=== PATIENT | female | born 1940 | race Caucasian/White ===

== ENCOUNTER 2017-05-12 14:22 | Inpatient (IN) | payer MEDICARE ==
[~2017-05-12] VITALS: Ht 162.6 cm; Wt 103.9 kg
[2017-05-12] MEDS ORDERED: SODIUM CHLOR 0.9% 1000 ML INJ 1,000 ML IV ONE (15:15)
[2017-05-12] MEDS ORDERED: SODIUM CHLORIDE 0.9% FLUSH 10 ML FLUSH IV FLUSH PRN ×2 (15:15→18:30)
[2017-05-12 15:21] VITALS: BP 127/67; PULSE 76; RESP 18; O2SAT 100
[2017-05-12 15:24] VITALS: BP 127/67; PULSE 74; PULSE 79; RESP 18; TEMP 98.4; O2SAT 100
[2017-05-12 15:29] LABS: BLOOD GAS BASE EXCESS 4.6 mmol/L (-2-2); BLOOD GAS CARBOXYHEMOGLOBIN 2.6 % (0-4); BLOOD GAS HCO3 29 mmol/L (22-26); BLOOD GAS METHEMOGLOBIN 0.2 % (0-2); BLOOD GAS O2 HGB SATURATION 97 % (90-100); BLOOD GAS OXYGEN CONTENT 12.2 Vol % (12.0-20.0); BLOOD GAS PCO2 50 mmHg (38-42); BLOOD GAS PO2 127 mmHG (61-120); BLOOD GAS TOTAL HGB 8.8 G/DL (12.0-16.0); CRITICAL VALUE NO; DRAW SITE RT BRACHIAL; LITER FLOW 3 L/M; NUMBER OF ARTERIAL PUNCTURES 2; OXYGEN DEVICE NASAL CANNULA; STAT YES; TEMP CORR TO 98.6; ULNAR PULSE PRESENT
[2017-05-12] MEDS ORDERED: SIMV40TA PO (16:33)
[2017-05-12] MEDS ORDERED: FURO1TAB62 PO (16:33)
[2017-05-12] MEDS ORDERED: FOLI400T PO (16:33)
[2017-05-12] MEDS ORDERED: SPIRCAP INH (16:33)
[2017-05-12] MEDS ORDERED: TYLE325T PO (16:33)
[2017-05-12] MEDS ORDERED: ALBUAER3 INH (16:33)
[2017-05-12] MEDS ORDERED: CHOL5000 PO (16:33)
[2017-05-12] MEDS ORDERED: ATEN25TA PO (16:33)
[2017-05-12] MEDS ORDERED: LATA0.002 EACH EYE (16:33)
[2017-05-12 16:35] LABS: ANION GAP 6 MEQ/L (5-15); AST (GOT) 63 U/L (15-37); BICARBONATE 30.7 MEQ/L (21.0-32.0); BLOOD UREA NITROGEN 22 MG/DL (7-18); CHLORIDE 104 MEQ/L (98-107); GLOMERULAR FILTRATION RATE 87 ML/MIN (>89); POTASSIUM 3.3 MEQ/L (3.5-5.1); SODIUM (NA) 141 MEQ/L (136-145)
[2017-05-12 16:36] LABS: ALT (GPT) 43 U/L (10-53)
[2017-05-12 16:39] LABS: BASOPHIL % 0.1 % (0.0-2.0); EOSINOPHIL # 0.1 TH/MM3 (0-0.4); EOSINOPHIL % 0.9 % (0.0-4.0); LYMPH % 4.3 % (9.0-44.0); LYMPHOCYTE # 0.3 TH/MM3 (1.0-4.8); MEAN CELL VOLUME 100.2 FL (80.0-100.0); MEAN CORPUSCULAR HEMOGLOBIN 33.4 PG (27.0-34.0); MEAN CORPUSCULAR HGB CONC 33.3 % (32.0-36.0); MONO % 2.9 % (0.0-8.0); NEUT % 91.8 % (16.0-70.0); PLATELET COUNT 48 TH/MM3 (150-450); RED BLOOD COUNT 2.59 MIL/MM3 (4.00-5.30); RED CELL DISTRIBUTION WIDTH 19.4 % (11.6-17.2); WHITE BLOOD COUNT 6.6 TH/MM3 (4.0-11.0)
[2017-05-12 16:43] LABS: HEMO FLAGS AUTO DIFF
[2017-05-12 16:46] LABS: ALKALINE PHOSPHATASE 89 U/L (45-117); CREATINE KINASE 161 U/L (26-192); TOTAL BILIRUBIN ADULT 0.6 MG/DL (0.2-1.0)
--- NOTE | 2017-05-12 17:01 | RADRPT ---
EXAM DATE/TIME: 05/12/2017 16:29 [place] COMPARISON: No previous studies available for comparison. INDICATIONS : Shortness of breath. MEDICAL HISTORY : None. SURGICAL HISTORY : None. ENCOUNTER: Initial ACUITY: 1 day PAIN SCORE: Non-responsive. LOCATION: Bilateral chest FINDINGS: Cardiomegaly with mild interstitial edema and consolidative changes left base. The support on the ri ght. There is no pleural effusion or pneumothorax The portion of the bony skeleton visualized is unremarkable. CONCLUSION: Cardiomegaly with mild failure and consolidative changes left base. I have no prior films for comparison. Peter Couch MD FACR on May 12, 2017 at 16:58 Board Certified Radiologist. This report was verified electronically.
[2017-05-12 17:08] LABS: BACTERIA, URINE OCC /hpf; BLOOD, URINE MOD (NEG); GLUCOSE,URINE NEG (NEG); HYALINE CAST, URINE 6 /lpf (RARE); KETONE, URINE NEG (NEG); NITRITE,URINE NEG (NEG); SQUAMOUS EPITHELIAL CELL URINE <1 /hpf (0-5); URINE COLOR LIGHT-YELLOW (YELLW/STRAW)
[2017-05-12 17:13] LABS: BANDS 2 % (0-6); NEUTROPHIL # MANUAL DIFF 6.2 TH/MM3 (1.8-7.7); PLATELET ESTIMATE SMEAR LOW (NORMAL); PLATELET MORPHOLOGY NORMAL (NORMAL); POLYS (SEG NEUTROPHILS) 92 % (16-70); SCAN/DIFF FINAL DIFF MANUAL; WBC DIFF SAMPLE 100
[2017-05-12 17:20] LABS: COMMENT (UR) CATH-CULTURE IND; CULTURE IF INDICATED CATH CULTURE IND
--- NOTE | 2017-05-12 17:36 | PD ---
HPI Chief Complaint: Altered Mental Status Time Seen by Provider: 14:57 Travel History International Travel<30 days: No Contact w/Intl Traveler<30days: No Traveled to known affect area: No History of Present Illness HPI The patient is 77 years old and arrives to the ER with altered mental status. Patient reportedly experienced a syncope episode from her [facility], she was evidently found comatose after the seizure. Concern for respiratory distress and shortness of breath reported. Patient was therefore sent here for evaluation. History is limited upon the patient's arrival due to altered mental status. The patient has a history of encephalopathy evidently multifactorial with aphagia. 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 [facility] Social History Alcohol Use: No Tobacco Use: No Substance Use: No Allergies-Medications (Allergen,Severity, Reaction): Coded Allergies: codeine (Verified Allergy, Intermediate, 05/12/17) cephalexin (Verified Allergy, Unknown, 05/12/17) Reported Meds & Prescriptions Reported Meds & Active Scripts Active Reported Tylenol (Acetaminophen) 325 Mg Tab 650 Mg PO Q6H PRN Vitamin D3 (Cholecalciferol) 5,000 Unit Cap 5,000 Units PO DAILY Proair Hfa 8.5 GM Inh (Albuterol Sulfate) 90 Mcg/Act Aer 1 Puff INH Q4H PRN 108 mcg/actuation Spiriva Handihaler (Tiotropium Inh) 18 Mcg Cap 18 Mcg INH DAILY 1 capsule = 18 mcg Latanoprost Opth Drops (Latanoprost) 0.005% Drops 1 Drop EACH EYE HS Refrigerate until opened. Folic Acid 0.4 Mg Tab 1 Mg PO DAILY Simvastatin 40 Mg Tab 40 Mg PO HS Lasix (Furosemide) 20 Mg Tab 20 Mg PO DAILY Atenolol 25 Mg Tab 25 Mg PO DAILY Review of Systems ROS Limitations: Clinical Condition Physical Exam Narrative GENERAL: 77-year-old female BMI is 39.5, patient does not answer questions SKIN: Warm and dry. HEAD: Atraumatic. Normocephalic. EYES: Pupils equal and round. No scleral icterus. No injection or drainage. ENT: No nasal bleeding or discharge. Mucous membranes pink and moist. NECK: Trachea midline. No JVD. CARDIOVASCULAR: Tachycardia to a rate of 100 approximately. RESPIRATORY: No accessory muscle use. Clear to auscultation. Breath sounds equal bilaterally. GASTROINTESTINAL: Abdomen soft, non-tender, nondistended. Hepatic and splenic margins not palpable. MUSCULOSKELETAL: Extremities without clubbing, cyanosis, or edema. No obvious deformities. NEUROLOGICAL: Unable to assess PSYCHIATRIC: Appropriate mood and affect; insight and judgment normal. Data Data Last Documented VS Vital Signs Date Time Temp Pulse Resp B/P (MAP) Pulse Ox O2 Delivery O2 Flow Rate FiO2 05/12/17 15:24 98.4 74 18 127/67 (87) 100 Nasal Cannula 3.00 Orders Orders Ammonia (05/12/17 15:06) Complete Blood Count With Diff (05/12/17 15:06) Comprehensive Metabolic Panel (05/12/17 15:06) Creatine Kinase (Cpk) (05/12/17 15:06) Troponin I (05/12/17 15:06) Thyroid Stimulating Hormone (05/12/17 15:06) Urinalysis - C+S If Indicated (05/12/17 15:06) Arterial Blood Gas (Abg) (05/12/17 15:06) Chest, Single Ap (05/12/17 15:06) Blood Glucose (05/12/17 15:06) Ecg Monitoring (05/12/17 15:06) Iv Access Insert/Monitor (05/12/17 15:06) Oximetry (05/12/17 15:06) Sodium Chloride 0.9% Flush (Ns Flush) (05/12/17 15:15) Drug Screen, Random Urine (05/12/17 15:06) Alcohol (Ethanol) (05/12/17 15:06) Tylenol (Acetaminophen) (05/12/17 15:06) Salicylates (Aspirin) (05/12/17 15:06) Sodium Chlor 0.9% 1000 Ml Inj (Ns 1000 M (05/12/17 15:15) Electrocardiogram (05/12/17 ) Urine Culture (05/12/17 16:23) Aztreonam Inj (Azactam Inj) (05/12/17 17:45) Vancomycin Inj (Vancomycin Inj) (05/12/17 17:45) Metronidazole 500 Mg Inj (Flagyl 500 Mg (05/12/17 17:45) Admit Order (Ed Use Only) (05/12/17 ) Auto Camp Attendant / Telemetry JORDAN.Q8H (05/12/17 17:40) Vital Signs (Adult) Q4H (05/12/17 17:40) Diet Heart Healthy (05/12/17 Dinner) Activity Bed Rest (05/12/17 17:40) Labs Laboratory Tests Test 05/12/17 15:20 05/12/17 15:52 05/12/17 16:23 Blood Gas Puncture Site RT BRACHIAL Blood Gas Patient Temperature 98.6 Blood Gas HCO3 29 mmol/L Blood Gas Base Excess 4.6 mmol/L Blood Gas Oxygen Saturation 97 % Arterial Blood pH 7.39 Arterial Blood Partial Pressure CO2 50 mmHg Arterial Blood Partial Pressure O2 127 mmHG Arterial Blood Oxygen Content 12.2 Vol % Arterial Blood Carboxyhemoglobin 2.6 % Arterial Blood Methemoglobin 0.2 % Blood Gas Hemoglobin 8.8 G/DL Oxygen Delivery Device NASAL CANNULA Blood Gas Liter Flow 3 L/M White Blood Count 6.6 TH/MM3 Red Blood Count 2.59 MIL/MM3 Hemoglobin 8.6 GM/DL Hematocrit 26.0 % Mean Corpuscular Volume 100.2 FL Mean Corpuscular Hemoglobin 33.4 PG Mean Corpuscular Hemoglobin Concent 33.3 % Red Cell Distribution Width 19.4 % Platelet Count 48 TH/MM3 Mean Platelet Volume 10.2 FL Neutrophils (%) (Auto) 91.8 % Lymphocytes (%) (Auto) 4.3 % Monocytes (%) (Auto) 2.9 % Eosinophils (%) (Auto) 0.9 % Basophils (%) (Auto) 0.1 % Neutrophils # (Auto) 6.0 TH/MM3 Lymphocytes # (Auto) 0.3 TH/MM3 Monocytes # (Auto) 0.2 TH/MM3 Eosinophils # (Auto) 0.1 TH/MM3 Basophils # (Auto) 0.0 TH/MM3 CBC Comment AUTO DIFF Differential Total Cells Counted 100 Neutrophils % (Manual) 92 % Band Neutrophils % 2 % Lymphocytes % 4 % Monocytes % 2 % Neutrophils # (Manual) 6.2 TH/MM3 Differential Comment FINAL DIFF MANUAL Platelet Estimate LOW Platelet Morphology Comment NORMAL Blood Urea Nitrogen 22 MG/DL Creatinine 0.66 MG/DL Random Glucose 91 MG/DL Total Protein 5.6 GM/DL Albumin 2.2 GM/DL Calcium Level 8.6 MG/DL Alkaline Phosphatase 89 U/L Aspartate Amino Transf (AST/SGOT) 63 U/L Alanine Aminotransferase (ALT/SGPT) 43 U/L Total Bilirubin 0.6 MG/DL Sodium Level 141 MEQ/L Potassium Level 3.3 MEQ/L Chloride Level 104 MEQ/L Carbon Dioxide Level 30.7 MEQ/L Anion Gap 6 MEQ/L Estimat Glomerular Filtration Rate 87 ML/MIN Ammonia 11 MCMOL/L Total Creatine Kinase 161 U/L Troponin I 0.31 NG/ML Thyroid Stimulating Hormone 3rd Gen 2.210 uIU/ML Urine Color LIGHT-YELLOW Urine Turbidity HAZY Urine pH 5.0 Urine Specific [place] 1.010 Urine Protein TRACE mg/dL Urine Glucose (UA) NEG mg/dL Urine Ketones NEG mg/dL Urine Occult Blood MOD Urine Nitrite NEG Urine Bilirubin NEG Urine Urobilinogen LESS THAN 2.0 MG/DL Urine Leukocyte Esterase MOD Urine RBC LESS THAN 1 /hpf Urine WBC 1 /hpf Urine Squamous Epithelial Cells <1 /hpf Urine Bacteria OCC /hpf Urine Hyaline Casts 6 /lpf Microscopic Urinalysis Comment CATH-CULTURE IND MDM Medical Decision Making Medical Screen Exam Complete: Yes Emergency Medical Condition: Yes Medical Record Reviewed: Yes Differential Diagnosis Seizure, syncope, electron imbalance, UTI, pneumonia Narrative Course CBC & BMP Diagram 05/12/17 15:52 Total Protein 5.6 L, Albumin 2.2 L, Calcium Level 8.6, Alkaline Phosphatase 89, Aspartate Amino Transf (AST/SGOT) 63 H, Alanine Aminotransferase (ALT/SGPT) 43, Total Bilirubin 0.6 Band neutrophils 2 Last 24 hours Impressions Chest X-Ray 05/12/17 1506 Signed Impressions: Service Date/Time: Friday, May 12, 2017 16:29 - CONCLUSION: Cardiomegaly with mild failure and consolidative changes left base. I have no prior films for comparison. Peter Couch MD FACR Troponin 0.31 TSH 2.2 Ammonia 11 Urinalysis shows moderate leukocyte esterase occasional bacteria 7.39/50/29 base excess 4.6 Patient will be admitted for IV antibiotics and IV fluids. Case discussed with Dr. Lomeli for FMR. Diagnosis Primary Impression: PNA (pneumonia) Additional Impressions: Syncope Elevated troponin Admitting Information Admitting Physician Requests: Admit Jerzy Salmeron MD May 12, 2017 17:36
[2017-05-12] MEDS ORDERED: metroNIDAZOLE 500 MG INJ 100 ML IV ONE (17:45)
[2017-05-12] MEDS ORDERED: VANCOMYCIN INJ 1,000 MG in SODIUM CHLOR 0.9% 250 ML INJ 250 ML IV ONE (17:45)
--- NOTE | 2017-05-12 17:47 | HHI.HP ---
HPI Service Family Medicine Primary Care Physician Unknown Admission Diagnosis PNA; AMS; Syncope; Elevated Tn Diagnoses: Chief Complaint: altered mental status International Travel<30 Days: No Contact w/Intl Traveler<30days: No History of Present Illness Patient is a 77-year-old female with history of COPD, stage IV lung cancer, recent hospitalization who presents with altered mental status. Patient is able to answer questions and respond to commands, however is nonverbal. Most of the history is derived from the patient's daughter, who is present. Just released from [facility] yesterday, where she was admitted for sepsis and pneumonia. Of note, she has a history of COPD and stage IV lung cancer. She has been on chemotherapy in the past, which is shopped at [facility]. She was on maintenance chemotherapy, but has been off that for 6- 8 weeks. Daughter is unsure of the prognosis. Her oncologist is Dr. Adams. Daughter states that before hospitalization about a month ago, she lived on her own, shopped, drove, was independent. They noted the hospitalization, she was transferred to [facility]. As of yesterday, she was sitting up, alert, feeding herself. Her daughter visited her today, and found her having difficulty breathing and altered mental status. She was diagnosed with metabolic encephalopathy at her last hospitalization. Per daughter, she was back to about 75% of her normal. She is unsure what happened at the facility , she is not on oxygen at home. Discussed case with [facility]. They stated that as of yesterday, she was alert and oriented 2, totally dependent in her ADLs. Was eating/drinking without issues. Was on 2 L of oxygen. Review of Systems ROS Limitations: Altered Mental Status Constitutional: DENIES: Fever, Chills Respiratory: COMPLAINS OF: Shortness of breath, DENIES: Cough Cardiovascular: DENIES: Chest pain Gastrointestinal: DENIES: Constipation, Diarrhea, Nausea, Vomiting Past Family Social History Past Medical History Stage IV lung [id number] cell COPD metabolic encephalopathy glaucoma knee OA Past Surgical History bilateral knee replacement Lap band surgery hysterectomy Reported Medications Reported Meds & Active Scripts Active Reported Tylenol (Acetaminophen) 325 Mg Tab 650 Mg PO Q6H PRN Vitamin D3 (Cholecalciferol) 5,000 Unit Cap 5,000 Units PO DAILY Proair Hfa 8.5 GM Inh (Albuterol Sulfate) 90 Mcg/Act Aer 1 Puff INH Q4H PRN 108 mcg/actuation Spiriva Handihaler (Tiotropium Inh) 18 Mcg Cap 18 Mcg INH DAILY 1 capsule = 18 mcg Latanoprost Opth Drops (Latanoprost) 0.005% Drops 1 Drop EACH EYE HS Refrigerate until opened. Folic Acid 0.4 Mg Tab 1 Mg PO DAILY Simvastatin 40 Mg Tab 40 Mg PO HS Lasix (Furosemide) 20 Mg Tab 20 Mg PO DAILY Atenolol 25 Mg Tab 25 Mg PO DAILY Allergies: Coded Allergies: codeine (Verified Allergy, Intermediate, 05/12/17) cephalexin (Verified Allergy, Unknown, 05/12/17) Active Ordered Medications Active Medications Aztreonam 2000 mg/ Sodium Chloride 100 ml @ 200 mls/hr ONCE ONCE IV; Start at 17:45; Stop 05/12/17 at 18:14 Metronidazole 100 ml @ 100 mls/hr ONCE ONCE IV; Start 05/12/17 at 17:45; Stop 05/12/17 at 18:44 Sodium Chloride 1,000 ml @ 999 mls/hr BOLUS ONCE IV Last administered on 05/12t 16:10; Admin Dose 999 MLS/HR; Start 05/12/17 at 15:15; Stop 05/12/17 at 16:15; Status DC Sodium Chloride (NS Flush) 2 ml UNSCH PRN IV FLUSH; Start 05/12/17 at 15:15 Vancomycin HCl 1000 mg/Sodium Chloride 250 ml @ 250 mls/hr ONCE ONCE IV; Start 05/12/17 at 17:45; Stop 05/12/17 at 18:44 Family History Mother-heart disease, 78y Father-heart disease, 63y Social History Stay at home mom quit smoking 20 years ago (2PPD) No alcohol use denies illicit drug use Physical Exam Vital Signs Vital Signs Date Time Temp Pulse Resp B/P (MAP) Pulse Ox O2 Delivery O2 Flow Rate FiO2 05/12/17 15:24 98.4 74 18 127/67 (87) 100 Nasal Cannula 3.00 05/12/17 15:24 98.4 79 18 127/67 (87) 100 Room Air 05/12/17 15:24 76 18 100 Room Air 05/12/17 15:21 76 18 127/67 (87) 100 Physical Exam GENERAL: This is a well-nourished, well-developed patient, in no apparent distress. Lying in bed. SKIN: No rashes, ecchymoses or lesions. Cool and dry. HEAD: Atraumatic. Normocephalic. No temporal or scalp tenderness. EYES: Pupils equal round and reactive. Extraocular motions intact. No scleral icterus. No injection or drainage. ENT: Throat without erythema, tonsillar hypertrophy or exudate. Uvula midline. Airway patent. NECK: Trachea midline. No JVD or lymphadenopathy. Supple, nontender, no meningeal signs. CARDIOVASCULAR: Regular rate and rhythm without murmurs, gallops, or rubs. RESPIRATORY: Distant and course breath sounds, diminished in bases GASTROINTESTINAL: Abdomen soft, non-tender, nondistended. No hepato-splenomegaly , or palpable masses. No guarding. MUSCULOSKELETAL: Extremities without clubbing, cyanosis. Mild pitting edema bilaterally NEUROLOGICAL: Awake and alert. Unable to assess orientation. section 8 property manager 2-12 grossly intact. 3-4/5 strength bilaterally upper extremities. Lower extremities unable to assess, pt non-responsive. Denies any changes in sensation. Laboratory Laboratory Tests Test 05/12/17 15:20 05/12/17 15:52 05/12/17 16:23 Blood Gas Puncture Site RT BRACHIAL Blood Gas Patient Temperature 98.6 Blood Gas HCO3 29 Blood Gas Base Excess 4.6 Blood Gas Oxygen Saturation 97 Arterial Blood pH 7.39 Arterial Blood Partial Pressure CO2 50 Arterial Blood Partial Pressure O2 127 Arterial Blood Oxygen Content 12.2 Arterial Blood Carboxyhemoglobin 2.6 Arterial Blood Methemoglobin 0.2 Blood Gas Hemoglobin 8.8 Oxygen Delivery Device NASAL CANNULA Blood Gas Liter Flow 3 White Blood Count 6.6 Red Blood Count 2.59 Hemoglobin 8.6 Hematocrit 26.0 Mean Corpuscular Volume 100.2 Mean Corpuscular Hemoglobin 33.4 Mean Corpuscular Hemoglobin Concent 33.3 Red Cell Distribution Width 19.4 Platelet Count 48 Mean Platelet Volume 10.2 Neutrophils (%) (Auto) 91.8 Lymphocytes (%) (Auto) 4.3 Monocytes (%) (Auto) 2.9 Eosinophils (%) (Auto) 0.9 Basophils (%) (Auto) 0.1 Neutrophils # (Auto) 6.0 Lymphocytes # (Auto) 0.3 Monocytes # (Auto) 0.2 Eosinophils # (Auto) 0.1 Basophils # (Auto) 0.0 CBC Comment AUTO DIFF Differential Total Cells Counted 100 Neutrophils % (Manual) 92 Band Neutrophils % 2 Lymphocytes % 4 Monocytes % 2 Neutrophils # (Manual) 6.2 Differential Comment FINAL DIFF MANUAL Platelet Estimate LOW Platelet Morphology Comment NORMAL Blood Urea Nitrogen 22 Creatinine 0.66 Random Glucose 91 Total Protein 5.6 Albumin 2.2 Calcium Level 8.6 Alkaline Phosphatase 89 Aspartate Amino Transf (AST/SGOT) 63 Alanine Aminotransferase (ALT/SGPT) 43 Total Bilirubin 0.6 Sodium Level 141 Potassium Level 3.3 Chloride Level 104 Carbon Dioxide Level 30.7 Anion Gap 6 Estimat Glomerular Filtration Rate 87 Ammonia 11 Total Creatine Kinase 161 Troponin I 0.31 Thyroid Stimulating Hormone 3rd Gen 2.210 Urine Color LIGHT-YELLOW Urine Turbidity HAZY Urine pH 5.0 Urine Specific [place] 1.010 Urine Protein TRACE Urine Glucose (UA) NEG Urine Ketones NEG Urine Occult Blood MOD Urine Nitrite NEG Urine Bilirubin NEG Urine Urobilinogen LESS THAN 2.0 Urine Leukocyte Esterase MOD Urine RBC LESS THAN 1 Urine WBC 1 Urine Squamous Epithelial Cells <1 Urine Bacteria OCC Urine Hyaline Casts 6 Microscopic Urinalysis Comment CATH-CULTURE IND Date/Time Source Procedure Growth Status 05/12/17 16:23 Urine Clean Catch Urine Culture Pending Received Result Diagram: 05/12/17 1552 05/12/17 1552 Imaging Last Impressions Chest X-Ray 05/12/17 1506 Signed Impressions: Service Date/Time: Friday, May 12, 2017 16:29 - CONCLUSION: Cardiomegaly with mild failure and consolidative changes left base. I have no prior films for comparison. Peter Couch MD FACR Caprini VTE Risk Assessment Caprini VTE Risk Assessment: Mod/High Risk (score >= 2) VTE Pharm Contraindication: Thrombocytopenia(<50) Caprini Risk Assessment Model Point Value = 1 Point Value = 2 Point Value = 3 Point Value = 5 Age 41-60 Minor surgery BMI > 25 kg/m2 Swollen legs Varicose veins or History of unexplained or recurrent spontaneous Oral contraceptives or hormone replacement Sepsis (< 1 month) Serious lung disease, including pneumonia (< 1 month) Abnormal pulmonary function Acute myocardial infarction Congestive heart failure (< 1 month) History of inflammatory bowel disease Medical patient at bed rest Age 61-74 Arthroscopic surgery Major open surgery (> 45 min) Laparoscopic surgery (> 45 min) Malignancy Confined to bed (> 72 hours) Immobilizing plaster cast Central venous access Age >= 75 History of VTE Family history of VTE Factor V Leiden Prothrombin [id number] Lupus anticoagulant Anticardiolipin antibodies Elevated serum homocysteine Heparin-induced thrombocytopenia Other congenital or acquired thrombophilia Stroke (< 1 month) Elective arthroplasty Hip, pelvis, or leg fracture Acute spinal cord injury (< 1 month) Prophylaxis Regimen Total Risk Factor Score Risk Level Prophylaxis Regimen 0-1 Low Early ambulation 2 Moderate Order ONE of the following: *Sequential Compression Device (SCD) *Heparin 5000 units SQ BID 3-4 Higher Order ONE of the following medications: *Heparin 5000 units SQ TID *Enoxaparin/Lovenox 40 mg SQ daily (WT < 150 kg, CrCl > 30 mL/min) *Enoxaparin/Lovenox 30 mg SQ daily (WT < 150 kg, CrCl > 10-29 mL/min) *Enoxaparin/Lovenox 30 mg SQ BID (WT < 150 kg, CrCl > 30 mL/min) AND/OR *Sequential Compression Device (SCD) 5 or more Highest Order ONE of the following medications: *Heparin 5000 units SQ TID (Preferred with Epidurals) *Enoxaparin/Lovenox 40 mg SQ daily (WT < 150 kg, CrCl > 30 mL/min) *Enoxaparin/Lovenox 30 mg SQ daily (WT < 150 kg, CrCl > 10-29 mL/min) *Enoxaparin/Lovenox 30 mg SQ BID (WT < 150 kg, CrCl > 30 mL/min) AND *Sequential Compression Device (SCD) Assessment and Plan Assessment and Plan 77 year old female with history of COPD, lung cancer, recent hospitalization with pneumonia and sepsis presents with altered mental status. Will admit for workup and treatment of pneumonia and UTI Code Status DNR Discussed Condition With Dr. Salmeron Problem List: (1) Altered mental status ICD Codes: R41.82 - Altered mental status, unspecified Plan: Ddx includes infection, polypharmacy, electrolyte disturbance, frailty, arrhythmia, stroke, seizure, vs other. Afebrile. WBC 6.6. No tachycardia. Lactic acid pending CXR shows cardiomegaly mild failure and consolidative changes left base. ABG with pH of 7.39, PO2 127, PCO2 50, HCO3 29. 100% on 2L O2 U/A shows moderate occult blood, moderate leukocyte esterase, occasional bacteria. CT head shows no acute change. No focal neurologic deficits reported, pt nonverbal, but follows commands EKG shows left and right bundle branch blocks. No pathologic ST changes. BMP shows no obvious electrolyte abnormalities. TSH, ammonia wnl -Trend troponins/EKGs -EEG to rule out seizure activity -Neuro checks Q4. Fall precautions. -Nurse to perform bedside swallow study. -Neurology consulted -Consider MRI if worsening -Blood cultures pending/urine cx pending -Consult PT. -Antibiotics for pneumonia as listed (2) PNA (pneumonia) ICD Codes: J18.9 - Pneumonia, unspecified organism Status: Acute Plan: CXR shows consolidative changes in left base. Causitive ddx includes S. pneumo, pseudomonas, MRSA, mycoplasma, Moraxella, viral URI, vs other. Qualifies as HCAP as patient recently came from [place] and recent hospitalization Unknown pneumonia vaccine status -Vancomycin IV every 12 hours. Pharmacy consulted. -Aztreonam 2g every 8 hours -Flagyl 500mg every 8 hours -Duonebs Q 6 hours scheduled. -Albuterol Q1 hr PRN SOB. -Supplemental O2 and pulse ox monitoring. -Sputum culture pending -Blood cultures pending (3) UTI (urinary tract infection) ICD Codes: N39.0 - Urinary tract infection, site not specified Plan: Urine shows moderate occult blood, etc. sugars, occasional bacteria -Continue antibiotics as above -Careful with fluids due to fluid/cardiac status -Urine culture pending (4) CHF (congestive heart failure) ICD Codes: I50.9 - Heart failure, unspecified Plan: Possible history of CHF. Chest x-ray shows cardiomegaly and mild failure. -Continue home lasix -Consider 2D echo -Monitor fluid status (5) Thrombocytopenia ICD Codes: D69.6 - Thrombocytopenia, unspecified Status: Acute Plan: Platelets of 48. No chemotherapy for last 6-8 weeks. Hgb 8.6. No signs of bleeding -Trend CBCs -Monitor for signs of bleeding -Hold chemoprophylaxis (6) Lung cancer ICD Codes: C34.90 - Malignant neoplasm of unspecified part of unspecified bronchus or lung Plan: History of stage IV non-small cell lung cancer. Has been on chemotherapy in the past. Chest port in place. Off chemotherapy for the last 6-8 weeks. -Continue to monitor -F/u outpatient (7) HTN (hypertension) ICD Codes: I10 - Essential (primary) hypertension Plan: Blood pressure 127/67 on arrival. -Continue home atenolol -Monitor vitals (8) FEN Status: Acute Plan: Fluids: No IV fluids, NPO until after swallow study Electrolytes: hypokalemia, replacing Nutrition: NPO, swall study DVT ppx: Hold chemoppx due to thrombocytopenia; SCDs Physician Certification 2 Midnight Certification Type: Admission for Inpatient Services Order for Inpatient Services The services are ordered in accordance with Medicare regulations or non- Medicare payer requirements, as applicable. In the case of services not specified as inpatient-only, they are appropriately provided as inpatient services in accordance with the 2-midnight benchmark. Estimated LOS (days): 3 days is the estimated time the patient will need to remain in the hospital, assuming treatment plan goals are met and no additional complications. Post-Hospital Plan: SNF Problem Qualifiers (1) Altered mental status: Qualified Codes: R41.82 - Altered mental status, unspecified (2) PNA (pneumonia): Qualified Codes: J18.9 - Pneumonia, unspecified organism (3) UTI (urinary tract infection): Qualified Codes: N30.00 - Acute cystitis without hematuria (4) CHF (congestive heart failure): Qualified Codes: I50.9 - Heart failure, unspecified (5) Lung cancer: Qualified Codes: C34.90 - Malignant neoplasm of unspecified part of unspecified bronchus or lung (6) HTN (hypertension): Qualified Codes: I10 - Essential (primary) hypertension Jagdish Lomeli MD, R2 May 12, 2017 17:47
[2017-05-12] MEDS ORDERED: LACTULOSE SYRUP 20 GM/30 ML CUP PO PRN (18:30)
[2017-05-12] MEDS ORDERED: SENNOSIDES 8.6 MG TAB PO PRN (18:30)
[2017-05-12] MEDS ORDERED: BISACODYL 10 MG SUPP RECTAL PRN (18:30)
[2017-05-12] MEDS ORDERED: MAGNESIUM HYDROXIDE SUSP 30 ML CUP PO PRN (18:30)
[2017-05-12] MEDS ORDERED: ACETAMINOPHEN 325 MG TAB PO PRN (18:30)
[2017-05-12] MEDS ORDERED: ONDANSETRON HCL 4 MG/2 ML VIAL IVP PRN (18:30)
[2017-05-12] MEDS: AZTREONAM INJ 2,000 MG in SODIUM CHLORIDE 0.9% INJ 100 ML IV ONE ×2 (18:42→21:47)
[2017-05-12] MEDS ORDERED: RESP: ALBUTEROL 2.5 MG/3 ML NEB (PRN) NEB (18:45)
[2017-05-12] MEDS ORDERED: Vancomycin Consult Pharmacy 1 EA OTHER SCH (18:45)
--- NOTE | 2017-05-12 18:59 | RADRPT ---
EXAM DATE/TIME: 05/12/2017 18:34 [facility] COMPARISON: No previous studies available for comparison. INDICATIONS : Altered mental status. RADIATION DOSE: 56.35 CTDIvol (mGy) ; Patient motion MEDICAL HISTORY : None SURGICAL HISTORY : None. ENCOUNTER: Initial ACUITY: 1 day PAIN SCALE: 0/10 LOCATION: cranial TECHNIQUE: Multiple contiguous axial images were obtained of the head. Using automated exposure control and adj ustment of the mA and/or kV according to patient size, radiation dose was kept as low as reasonably a chievable to obtain optimal diagnostic quality images. DICOM format image data is available electro nically for review and comparison. FINDINGS: The patient head is canted in the gantry creating some left right asymmetries. Motion degradation of the lobe convexity images on the 1st acquisition; a 2nd acquisition was performed which has less mot ion artifact. CEREBRUM: The ventricles are normal for age. No evidence of midline shift, mass lesion, hemorrhage or acute in farction. No extra-axial fluid collections are seen. POSTERIOR FOSSA: The cerebellum and brainstem are intact. The 4th ventricle is midline. The cerebellopontine angle i s unremarkable. EXTRACRANIAL: The visualized portion of the orbits is intact. SKULL: The calvaria is intact. No evidence of skull fracture. CONCLUSION: 1. Age-appropriate atrophy. 2. No acute findings in the brain. Sterling Osuna MD on May 12, 2017 at 18:55 Board Certified Radiologist. This report was verified electronically.
[2017-05-12 20:00] VITALS: BP 120/58; PULSE 71; RESP 20; TEMP 97.8; O2SAT 100
[2017-05-12 20:09] LABS: APTT (PATIENT) 23.4 SEC (24.3-30.1); PROTHROMBIN TIME - PATIENT 10.3 SEC (9.8-11.6)
[2017-05-12 20:42] VITALS: O2SAT 98
[2017-05-12] MEDS: RESP: ALBUTEROL 2.5 MG/IPRATROPIUM 0.5 MG NEB (SCH) NEB (20:42)
[2017-05-12] MEDS: DOCUSATE SODIUM 50 MG/SENNA 8.6 MG TAB PO SCH (21:00)
[2017-05-12] MEDS: LATANOPROST 0.005% OPHT SOLN 2.5 ML BTL EACH EYE SCH (21:00)
[2017-05-12] MEDS ORDERED: VANCOMYCIN INJ 2,000 MG in SODIUM CHLORID 0.9% 500 ML INJ 500 ML IV ONE (21:00)
[2017-05-12] MEDS ORDERED: VANCOMYCIN 1,000 MG/NS 250 ML IV ONE ×2 (21:00)
[2017-05-12] MEDS: PRAVASTATIN SOD 80 MG TAB PO SCH (21:00)
[2017-05-12 21:09] LABS: ACETAMINOPHEN LESS THAN 2.0 MCG/ML (10.0-30.0)
[2017-05-12 21:10] LABS: ALCOHOL LESS THAN 3 MG/DL (0-5)
[2017-05-12] MEDS: SODIUM CHLORIDE 0.9% FLUSH 10 ML FLUSH IV FLUSH SCH (22:36)
[2017-05-12] MEDS ORDERED: AMIT25TA9 PO (22:48)
[2017-05-12] MEDS: POTASSIUM CHLORIDE INJ 20 MEQ in SODIUM CHLORIDE 0.9% INJ 100 ML IV SCH (23:50)
[2017-05-13] VITALS (14 sets, daily range): BP systolic 106–123; BP diastolic 58–67; PULSE 70–88; RESP 17–20; TEMP 97.2–98.2; O2SAT 90–100
[2017-05-13] MEDS: RESP: ALBUTEROL 2.5 MG/IPRATROPIUM 0.5 MG NEB (SCH) NEB ×3 (00:04→08:28)
[2017-05-13] MEDS: POTASSIUM CHLORIDE INJ 20 MEQ in SODIUM CHLORIDE 0.9% INJ 100 ML IV SCH (02:36)
[2017-05-13] MEDS: metroNIDAZOLE 500 MG INJ 100 ML IV SCH ×3 (02:43→16:54)
[2017-05-13] MEDS: AZTREONAM INJ 2,000 MG in SODIUM CHLORIDE 0.9% INJ 100 ML IV SCH ×3 (04:24→20:38)
[2017-05-13 07:11] LABS: AUTOMATED NEUTROPHIL # 6.5 TH/MM3 (1.8-7.7); BASOPHIL % 0.1 % (0.0-2.0); EOSINOPHIL # 0.1 TH/MM3 (0-0.4); EOSINOPHIL % 1.7 % (0.0-4.0); HEMATOCRIT 25.1 % (35.0-46.0); LYMPH % 3.1 % (9.0-44.0); LYMPHOCYTE # 0.2 TH/MM3 (1.0-4.8); MEAN CELL VOLUME 100.2 FL (80.0-100.0); MEAN CORPUSCULAR HEMOGLOBIN 32.9 PG (27.0-34.0); MEAN CORPUSCULAR HGB CONC 32.8 % (32.0-36.0); MONO % 2.2 % (0.0-8.0); NEUT % 92.9 % (16.0-70.0); PLATELET COUNT 43 TH/MM3 (150-450); RED BLOOD COUNT 2.51 MIL/MM3 (4.00-5.30); RED CELL DISTRIBUTION WIDTH 19.8 % (11.6-17.2); WHITE BLOOD COUNT 6.9 TH/MM3 (4.0-11.0)
[2017-05-13 07:13] LABS: HEMO FLAGS AUTO DIFF
[2017-05-13 07:33] LABS: BICARBONATE 29.6 MEQ/L (21.0-32.0); POTASSIUM 3.3 MEQ/L (3.5-5.1)
[2017-05-13 08:07] LABS: SCAN/DIFF AUTO DIFF CONFIRMED
[2017-05-13] MEDS: TIOTROPIUM BROMIDE 18 MCG INH INH SCH (09:00)
[2017-05-13] MEDS: VANCOMYCIN INJ 1,500 MG in SODIUM CHLORID 0.9% 500 ML INJ 500 ML IV SCH ×2 (09:33→20:43)
[2017-05-13] MEDS: SODIUM CHLORIDE 0.9% FLUSH 10 ML FLUSH IV FLUSH SCH ×2 (09:33→20:39)
[2017-05-13] MEDS: FUROSEMIDE 20 MG TAB PO SCH (09:33)
[2017-05-13] MEDS: DOCUSATE SODIUM 50 MG/SENNA 8.6 MG TAB PO SCH ×2 (09:33→20:38)
[2017-05-13] MEDS: FOLIC ACID 1 MG TAB PO SCH (09:33)
[2017-05-13] MEDS: ATENOLOL 25 MG TAB PO SCH (09:34)
[2017-05-13] MEDS: CHOLECALCIFEROL (VIT D3) 5000 UNIT CAP PO SCH (09:34)
--- NOTE | 2017-05-13 09:39 | PD.CONS ---
History of Present Illness Service Neurology Consult Requested By medical Reason for Consult confusion Primary Care Physician Unknown History of Present Illness 77-year-old female with history of COPD, stage IV lung cancer, admitted for mental status changes. pt unable to give much hx, medical chart reviewed. she tells me she is from [place]. denies any [place], cp. will repeat [place] off/on during interview. Review of Systems ROS Limitations: Altered Mental Status Past Family Social History Past Medical History Stage IV lung cqgoog-pez-[id number] cell COPD metabolic encephalopathy glaucoma knee OA Past Surgical History bilateral knee replacement Lap band surgery hysterectomy Reported Medications Reported Meds & Active Scripts Active Reported Tylenol (Acetaminophen) 325 Mg Tab 650 Mg PO Q6H PRN Vitamin D3 (Cholecalciferol) 5,000 Unit Cap 5,000 Units PO DAILY Proair Hfa 8.5 GM Inh (Albuterol Sulfate) 90 Mcg/Act Aer 1 Puff INH Q4H PRN 108 mcg/actuation Spiriva Handihaler (Tiotropium Inh) 18 Mcg Cap 18 Mcg INH DAILY 1 capsule = 18 mcg Latanoprost Opth Drops (Latanoprost) 0.005% Drops 1 Drop EACH EYE HS Refrigerate until opened. Folic Acid 0.4 Mg Tab 1 Mg PO DAILY Simvastatin 40 Mg Tab 40 Mg PO HS Lasix (Furosemide) 20 Mg Tab 20 Mg PO DAILY Atenolol 25 Mg Tab 25 Mg PO DAILY Allergies: Coded Allergies: codeine (Verified Allergy, Intermediate, 05/12/17) cephalexin (Verified Allergy, Unknown, 05/12/17) Family History +cad Social History quit smoking No alcohol use denies illicit drug use Review of Systems All other ROS: ROS reviewed as documented in chart Past Family Social History Allergies: Coded Allergies: codeine (Verified Allergy, Intermediate, 05/12/17) cephalexin (Verified Allergy, Unknown, 05/12/17) Active Ordered Medications Current Medications Medications (Trade) Dose Ordered Sig/Velvet Route Start Time Stop Time Status Last Admin (NS Flush) 2 ml UNSCH PRN IV FLUSH 05/12/17 18:30 (NS Flush) 2 ml BID IV FLUSH 05/12/17 21:00 05/12/17 22:36 (Zofran Inj) 4 mg Q6H PRN IVP 05/12/17 18:30 (Tylenol) 650 mg Q6H PRN PO 05/12/17 18:30 (Kaykay-Colace) 1 tab BID PO 05/12/17 21:00 (Milk Of Magnesia Liq) 30 ml Q12H PRN PO 05/12/17 18:30 (Senokot) 17.2 mg Q12H PRN PO 05/12/17 18:30 (Dulcolax Supp) 10 mg DAILY PRN RECTAL 05/12/17 18:30 (Lactulose Liq) 30 ml DAILY PRN PO 05/12/17 18:30 (Tenormin) 25 mg DAILY PO 05/13/17 09:00 (Vitamin D3) 5,000 units DAILY PO 05/13/17 09:00 (Folate) 1 mg DAILY PO 05/13/17 09:00 (Lasix) 20 mg DAILY PO 05/13/17 09:00 (Xalatan 0.005% Opth Soln) 1 drop HS EACH EYE 05/12/17 21:00 (Spiriva Inh) 18 mcg DAILY INH 05/13/17 09:00 (Pravachol) 80 mg HS PO 05/12/17 21:00 (Duoneb Neb) 1 ampule Q4HR NEB NEB 05/12/17 20:00 05/13/17 08:28 (Albuterol Neb) 2.5 mg Q2HR NEB PRN NEB 05/12/17 18:45 Aztreonam 2000 mg/ Sodium Chloride 100 ml @ 200 mls/hr Q8H IV 05/13/17 04:00 05/13/17 04:24 Vancomycin HCl 1500 mg/Sodium Chloride 515 ml @ 250 mls/hr Q12H IV 05/13/17 09:00 Metronidazole 100 ml @ 100 mls/hr Q8H IV 05/13/17 02:00 05/13/17 02:43 Pharmacy Profile Note 0 ml @ 0 mls/hr UNSCH OTHER 05/12/17 18:45 Miscellaneous Information SPECIFIC LAB TO BE [facility]... ONCE ONCE .XX 05/14/17 08:45 05/14/17 08:46 Exam I&O / VS Vital Signs Date Time Temp Pulse Resp B/P (MAP) Pulse Ox O2 Delivery O2 Flow Rate FiO2 05/13/17 08:29 90 21 05/13/17 06:02 97.2 81 20 118/58 (78) 99 05/13/17 04:00 72 05/13/17 00:11 98 Nasal Cannula 2.00 05/13/17 00:00 98.2 74 20 121/66 (84) 100 05/13/17 00:00 70 05/12/17 20:42 98 Nasal Cannula 3.00 05/12/17 20:00 97.8 71 20 120/58 (78) 100 05/12/17 15:24 98.4 74 18 127/67 (87) 100 Nasal Cannula 3.00 05/12/17 15:24 98.4 79 18 127/67 (87) 100 Room Air 05/12/17 15:24 76 18 100 Room Air 05/12/17 15:21 76 18 127/67 (87) 100 Exam Comments alert, obese, ox 1. verbal perseveration "i'm from [place]", neck supple, follows some simple request, eomi, vff, ou dense opacities, 3-2mm, face sym, generalized weakness dawn to gravity, withdraws to tactile, planterflexor Review/Management Diagnosis/Plan: (1) Acute encephalopathy ICD Codes: G93.40 - Encephalopathy, unspecified Status: Acute Plan: metabolic 2/2 hypercapnia/chf exacerbation. r/o complex partial sz vs brain met vs infarct recs eeg mri/mra f/u esr./crp follow exam (2) Lung cancer ICD Codes: C34.90 - Malignant neoplasm of unspecified part of unspecified bronchus or lung (3) CHF (congestive heart failure) ICD Codes: I50.9 - Heart failure, unspecified Status: Chronic (4) HTN (hypertension) ICD Codes: I10 - Essential (primary) hypertension Status: Chronic Problem Qualifiers (1) Lung cancer: Qualified Codes: C34.90 - Malignant neoplasm of unspecified part of unspecified bronchus or lung (2) CHF (congestive heart failure): Qualified Codes: I50.9 - Heart failure, unspecified (3) HTN (hypertension): Qualified Codes: I10 - Essential (primary) hypertension Jewel Prescott MD May 13, 2017 09:39
[2017-05-13] MEDS ORDERED: RESP: ALBUTEROL 2.5 MG/IPRATROPIUM 0.5 MG NEB (PRN) NEB (10:45)
--- NOTE | 2017-05-13 12:30 | HHI.FPPN ---
Subjective Remarks Ms. Villasenor was afebrile with stable vital signs overnight. Discussed with nursing staff prior to patient encounter- patient more talkative. patient failed bedside swallow so Speech therapy evaluation performed. Patient interviewed; patient reports that she slept well and is not currently in pain. Patient feels that she is breathing well. Patient would often stare in reponse to questioning. Patient oriented to president but not to year. Patient was aware that she was in a hospital after she was re-oriented. (Glenn August MD, R3) Objective Vitals Vital Signs Date Time Temp Pulse Resp B/P (MAP) Pulse Ox O2 Delivery O2 Flow Rate FiO2 05/13/17 08:29 90 21 05/13/17 08:06 97.2 88 17 123/67 (85) 100 05/13/17 08:00 83 05/13/17 06:02 97.2 81 20 118/58 (78) 99 05/13/17 04:00 72 05/13/17 00:11 98 Nasal Cannula 2.00 05/13/17 00:00 98.2 74 20 121/66 (84) 100 05/13/17 00:00 70 05/12/17 20:42 98 Nasal Cannula 3.00 05/12/17 20:00 97.8 71 20 120/58 (78) 100 05/12/17 15:24 98.4 74 18 127/67 (87) 100 Nasal Cannula 3.00 05/12/17 15:24 98.4 79 18 127/67 (87) 100 Room Air 05/12/17 15:24 76 18 100 Room Air 05/12/17 15:21 76 18 127/67 (87) 100 I/O 05/12/17 05/12/17 05/12/17 05/13/17 05/13/17 05/13/17 07:00 15:00 23:00 07:00 15:00 23:00 Intake Total 320 ml 510 ml Balance 320 ml 510 ml Intake Oral 120 ml IV Total 200 ml 510 ml # Voids 2 (Glenn August MD, R3) Result Diagram: 05/13/17 0652 05/13/17 0652 Imaging Last Impressions Chest X-Ray 05/12/17 1506 Signed Impressions: Service Date/Time: Friday, May 12, 2017 16:29 - CONCLUSION: Cardiomegaly with mild failure and consolidative changes left base. I have no prior films for comparison. Peter Couch MD FACR Head CT 05/12/17 0000 Signed Impressions: Service Date/Time: Friday, May 12, 2017 18:34 - CONCLUSION: 1. Age-appropriate atrophy. 2. No acute findings in the brain. Sterling Osuna MD Objective Remarks GENERAL: This is a well-nourished, well-developed patient, in no apparent distress. Lying in bed. SKIN: No rashes, ecchymoses or lesions. Cool and dry. Back examined- midline mild stage 1 ulceration EYES: Extraocular motions grossly intact. No scleral icterus. No injection or drainage. CARDIOVASCULAR: Regular rate and rhythm without murmurs RESPIRATORY: Distant and course breath sounds, diminished in bases GASTROINTESTINAL: Abdomen soft, non-tender, nondistended. MUSCULOSKELETAL: No calf pain. Mild pitting edema bilaterally NEUROLOGICAL: Awake; oriented to president but not year or location. Grossly normal CN. Grossly normal peripheral motor/sensory function (Glenn August MD, R3) A/P Assessment and Plan 77 year old female with history of COPD, lung cancer, recent hospitalization with pneumonia and sepsis presents with altered mental status. Admitted for workup of AMS and treatment of suspected pneumonia and UTI (Glenn August MD, R3) Attending Attestation Medical rounds were performed with Dr August, Dr Lomeli and Dr Irwin, Patient seen and examined, agree with above documentation and assessment, see Orders (Jamie Eddy MD) Problem List: (1) Altered mental status ICD Codes: R41.82 - Altered mental status, unspecified Status: Acute Plan: -ACS rule out -Troponins 0.31 -> 0.31-> 0.22 -EKGs: sinus rhythm with 1st degree AV block, R bundle block, left anterior fascicular block. No ST changes concerning for ACS -Neurology consulted -EEG pending -MRI pending -MRA pending -ESR/CRP- pending -Neuro checks Q4. Fall precautions. -Swallow study- mechanical soft diet, thin liquids -Treatment for pneumonia -Aztreonam, Metronidazole, Vancomycin -Continue PT Impression: Ddx includes infection, polypharmacy, electrolyte disturbance, frailty, arrhythmia, stroke, seizure, vs other. Afebrile. WBC 6.6. No tachycardia. Lactic acid pending CXR shows cardiomegaly mild failure and consolidative changes left base. ABG with pH of 7.39, PO2 127, PCO2 50, HCO3 29. 100% on 2L O2 U/A shows moderate occult blood, moderate leukocyte esterase, occasional bacteria. CT head shows no acute change. No focal neurologic deficits reported, pt nonverbal, but follows commands EKG shows left and right bundle branch blocks. No pathologic ST changes. BMP shows no obvious electrolyte abnormalities. TSH, ammonia wnl Blood cultures: pending; negative x1 day (2) PNA (pneumonia) ICD Codes: J18.9 - Pneumonia, unspecified organism Status: Acute Plan: -Supplemental O2 and pulse ox monitoring. -Continue empiric antibiotics -Vancomycin IV every 12 hours. Pharmacy consulted. -Aztreonam 2g every 8 hours -Flagyl 500mg every 8 hours -Continue bronchodilation -Duonebs Q 4 hours PRN -Will check urinary strep pneumonia/legionella antigens -Will repeat CXR Impression: CXR shows consolidative changes in left base. Causitive ddx includes S. pneumo, pseudomonas, MRSA, mycoplasma, Moraxella, viral URI, vs other. Qualifies as HCAP as patient recently came from [facility] and recent hospitalization Unknown pneumonia vaccine status Blood cultures: pending; negative to date -Sputum culture pending (3) UTI (urinary tract infection) ICD Codes: N39.0 - Urinary tract infection, site not specified Plan: -Continue antibiotics as above -Careful with fluids due to fluid/cardiac status -Urine culture pending Impression:UA on admission with moderate occult blood, etc. sugars, occasional bacteria (4) CHF (congestive heart failure) ICD Codes: I50.9 - Heart failure, unspecified Status: Chronic Plan: Impression: Possible history of CHF. Chest x-ray shows cardiomegaly and mild failure. -Continue home lasix -Consider 2D echo -Monitor fluid status (5) Thrombocytopenia ICD Codes: D69.6 - Thrombocytopenia, unspecified Status: Acute Plan: -Trend CBCs -Monitor for signs of bleeding -Hold chemoprophylaxis Impression: Platelets of 48. No chemotherapy for last 6-8 weeks. Hgb 8.6. No signs of bleeding (6) Lung cancer ICD Codes: C34.90 - Malignant neoplasm of unspecified part of unspecified bronchus or lung Plan: -Will consult Hematology (reportedly known to Dr. Adams) Impression: History of stage IV non-small cell lung cancer. Has been on chemotherapy in the past. Chest port in place. Off chemotherapy for the last 6- 8 weeks. (7) HTN (hypertension) ICD Codes: I10 - Essential (primary) hypertension Status: Chronic Plan: Impression: Normotensive on admission -Continue home atenolol -Monitor vitals (8) FEN Status: Acute Plan: Fluids: No IV fluids at this time Electrolytes: hypokalemia, replacing Nutrition: Mechanical soft diet, thin liquids per speech therapy DVT ppx: Hold chemo ppx due to thrombocytopenia; SCDs (Glenn August MD, R3) Problem Qualifiers (1) Altered mental status: Qualified Codes: R41.82 - Altered mental status, unspecified (2) PNA (pneumonia): Qualified Codes: J18.9 - Pneumonia, unspecified organism (3) UTI (urinary tract infection): Qualified Codes: N30.00 - Acute cystitis without hematuria (4) CHF (congestive heart failure): Qualified Codes: I50.9 - Heart failure, unspecified (5) Lung cancer: Qualified Codes: C34.90 - Malignant neoplasm of unspecified part of unspecified bronchus or lung (6) HTN (hypertension): Qualified Codes: I10 - Essential (primary) hypertension Glenn August MD, R3 May 13, 2017 12:30 Jamie Eddy MD May 15, 2017 10:36
--- NOTE | 2017-05-13 15:32 | MB ---
cc: HUGH CLAROS DATE OF CONSULTATION: 05/13/2017. REASON FOR CONSULTATION: 77-year-old female with a history of stage IV wxc-mmbdk-wjrm lung cancer, pneumonia and deteriorating health admitted to [facility]. PATIENT PROFILE: The patient is a 77-year-old female. She was and is . Her approximately two years ago. She was born in [place]. She lives in [place], [place]. She had two children. She has a daughter who is living and a son who is . Until her recent illness, she was independent and living in her own home. She stopped smoking twenty years ago and had previously smoked two packs of cigarettes per day for many years. She does not drink alcohol. HISTORY OF PRESENT ILLNESS: The current history is obtained by speaking to the patient's daughter and reviewing limited records. The patient is not able to provide a good history. In approximately October of 2015, the patient had a x-ray of the chest due to increased shortness of breath. She has underlying COPD. She was found to have a mass in the lung and the patient's daughter recollects that this may have been the left lung. There is a note from the rehab center that she was found to have stage IV xat-gbxfl-ciif lung cancer. The daughter remembers being told that she had any inoperable lung cancer. She did not undergo surgery. She did not undergo radiation. She has been treated with chemotherapy and was on a maintenance chemotherapy until about two months ago. Approximately five weeks ago, her health deteriorated where she became short of breath, weak and had the lapses in her level of consciousness. She was hospitalized in [place], [place] for one month. She was found, according to the daughter, to have pneumonia and sepsis. During this hospitalization, she had episodes where her level of consciousness would wax and wane. The daughter indicates that studies did not show metastatic disease to the brain and there is no documentation of a seizure disorder. She made a slight convalescence and was sent to a care home. Within 24 hours of being in the care home, she again had a decreased level of consciousness with confusion and global weakness. She was brought to [facility] where she was admitted and I am asked to see her because of her history of lung cancer. I do not know what chemotherapy she received. I do not know the extent of her disease, either at presentation or presently. PAST SURGICAL HISTORY: 1. Bilateral knee replacement. 2. Lab-band surgery for obesity. 3. Hysterectomy. 4. Infusaport placement. PAST MEDICAL HISTORY: 1. Stage IV qnd-bbzmv-wtrz lung cancer per history with treatment with chemotherapy and recent maintenance chemotherapy. 2. COPD. 3. Metabolic encephalopathy. 4. Glaucoma. 5. Osteoarthritis. MEDICATIONS: Her medications at the time of transfer to the hospital were: 1. Albuterol. 2. Amitriptyline . 3. Atenolol. 4. Vitamin D3. 5. Folic acid. 6. Lasix. 7. Simvastatin. 8. Spiriva. CURRENT MEDICATIONS: Her current medicines include: 1. DuoNeb. 2. Tenormin. 3. Lasix. 4. Spiriva. 5. Vancomycin.. 6. Azactam. 7. Metronidazole. ALLERGIES: 1. ? CEPHALEXIN. 2. CODEINE. LABORATORY STUDIES: On 05/13/2017: Lytes, BUN and creatinine notable only for an elevation in the troponin to 0.22. Liver function tests on 05/12/2017 are notable only for a slight elevation in the AST to 63. Ammonia is 11. Hemoglobin 8.3, white count 6900, platelet count 43,000. MCV is 100. IMAGING STUDIES: Chest x-ray dated 05/12/2017 shows cardiomegaly with mild heart failure and consolidative changes in the left base. A head CT scan shows age-appropriate atrophy and no acute findings. REVIEW OF SYSTEMS: A review of systems is difficult to obtain. The patient cannot carry on a conversation. Her major issue is weakness, shortness of breath. PHYSICAL EXAMINATION: GENERAL: Physical examination reveals an acutely ill-appearing female lying in bed. She is able to carry on a simple conversation. She has audible wheezing. VITAL SIGNS: Blood pressure is 120/70, respiratory rate 18, pulse 80, afebrile. O2 sat is 90%. HEAD, EYES, EARS, NOSE, THROAT: Head is normocephalic. The sclerae and conjunctivae are normal. Oropharynx unremarkable. LYMPHATIC: No adenopathy. BREASTS: Without masses. HEART: Regular rhythm. CHEST: She has an Infusaport in the right upper chest. LUNGS: Diffuse expiratory wheezes bilaterally. There are decreased sounds over the left lung base. ABDOMEN: Abdomen obese. No hepatosplenomegaly. EXTREMITIES: Trace edema. MUSCULOSKELETAL: No bone pain. NEUROLOGIC: No focal weakness. The patient is confused. ASSESSMENT: The patient is a 77-year-old female who has a diagnosis of stage IV zlh-bxisi-qgcx lung cancer dating back to approximately a year and a half ago. It is unclear to me as to what took place at the time of staging. The daughter tells me the cancer was inoperable. Over the past five weeks, her condition has not improved in spite of antibiotics and four weeks of hospitalization. She may have congestive heart failure. There is something going on at the left base. I have no idea of the extent of her disease. RECOMMENDATIONS: 1. Neurology has been consulted and it my understanding that she is going to have an MRI of the brain. 2. She needs a pulmonary consultation. She is doing poorly in terms of breathing with significant wheezing and will probably require steroids. I have spoken with Dr. Martinez and have placed a consult. I have ordered a BNP 3. She needs to be re-staged. I do not have any handle on the extent of her disease and if her current deterioration is related to the cancer or some other event. I have ordered a CT scan of the thorax, abdomen and pelvis with IV contrast but no oral contrast. 4. Her medical oncologist is Dr. Adams. I contacted the answering service with the telephone number being [phone], and spoke with the service. Dr. Adams will be back Monday and they indicated that she will call me Monday as I need to know what has been going on. 5. She is anemia. It would appear that this is related to her acute and chronic illnesses. Will repeat CBC and platelet count. In addition, will check a B12, folic acid level and iron studies, although I suspect that these will be normal. This was discussed with the patient's daughter and son-in-law. MD SERENE Prince/ABUNDIO /2:44 PM /2:59 PM MELIDA
[2017-05-13] MEDS ORDERED: GADODIAMIDE PF 287 MG/ML 20 ML VIAL (for RAD MRI) IVCONTRAST ONE (15:42)
--- NOTE | 2017-05-13 16:06 | RADRPT ---
EXAM DATE/TIME: 05/13/2017 15:23 [facility] COMPARISON: No previous studies available for comparison. INDICATIONS : Altered mental status. MEDICAL HISTORY : Carcinoma, lung. Chronic obstructive pulmonary disease. SURGICAL HISTORY : Total knee replacement, left. Total knee replacement, right. Hysterectomy. ENCOUNTER: Initial ACUITY: 1 day PAIN SCORE: 0/10 LOCATION: cranial Please note a normal MRA of the brain does not entirely exclude the possibility of a small aneurysm, nor the possibility of distal intracranial vessel disease. TECHNIQUE: 3D time of flight MRA was performed. Source images, multiplanar STS MIP, and 3D volume MIP reconstru ctions were reviewed. FINDINGS: The A1 segment of the right anterior cerebral artery is very attenuated. Likely congenital finding. A nterior commuting artery is intact. Small 2 mm lateral outpouching of the intracranial portion of the carotid artery on the left involving its cavernous segment. No evidence of proximal intracranial art erial occlusion or high-grade stenosis. CONCLUSION: 1. Small 2 mm saccular lateral outpouching of the cavernous carotid artery on the left may represent a tiny aneurysm. 2. 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 Alber Amezquita MD on May 13, 2017 at 15:58 Board Certified Radiologist. This report was verified electronically.
--- NOTE | 2017-05-13 16:19 | RADRPT ---
EXAM DATE/TIME: 05/13/2017 15:23 [facility] COMPARISON: No previous studies available for comparison. INDICATIONS : Altered mental status. CONTRAST: 20 cc Omniscan (gadodiamide) IV MEDICAL HISTORY : Carcinoma, lung. Chronic obstructive pulmonary disease. SURGICAL HISTORY : Total knee replacement, left. Total knee replacement, right. Hysterectomy. ENCOUNTER: Initial ACUITY: 1 day PAIN SCORE: 0/10 LOCATION: cranial TECHNIQUE: Multiplanar, multisequence MRI of the brain was performed both prior to and following the administrat ion of paramagnetic contrast. FINDINGS: CEREBRUM: The ventricles are normal for age. No evidence of midline shift, mass lesion, hemorrhage or acute in farction. No extraaxial fluid collections are seen. The pituitary gland and suprasellar cistern are normal in configuration. WHITE MATTER: No significant signal abnormalities are seen in the white matter. POSTERIOR FOSSA: The cerebellum and brainstem are intact. The 4th ventricle is midline. The cerebellopontine angle is unremarkable. The cerebellar tonsils are normal in position. DIFFUSION IMAGING: No focal areas of restricted diffusion are seen. No evidence of acute infarction. EXTRACRANIAL: The visualized portions of the orbits and paranasal sinuses are unremarkable. POST-CONTRAST: No abnormal areas of parenchymal or dural enhancement. No evidence of blood-brain barrier breakdown. CONCLUSION: No acute intracranial findings. Alber Amezquita MD on May 13, 2017 at 16:15 Board Certified Radiologist. This report was verified electronically.
--- NOTE | 2017-05-13 18:56 | MB ---
cc: YOVANI RUBI DATE OF CONSULTATION 05/11/[address] Hussein Martinez REASON FOR CONSULTATION Pneumonia. HISTORY OF PRESENT ILLNESS Mr. Villasenor is a pleasant 77-year-old female who was diagnosed with cancer of the lung about early 2015 and she was told she has stage IV cancer. She follows with Dr. Adams in [place] and receives chemotherapy. As per her daughter, she was receiving maintenance chemotherapy. She was admitted at [facility] just before . She remained in the hospital for one month or so and she was told she has altered mental status and possible seizure. Her mental status was waxing and waning of action and waning. She was discharged to the care home. One day later, she was brought to this hospital for worsening of her mental status. The patient is evaluated in the hospital. She had a chest x-ray done which shows cardiomegaly with mild failure and consolidative changes at the left base. Her CBC showed WBC count 6.9, hemoglobin 8.3, hematocrit 25, MCV 100, platelet count 43. INR is 1.0, sodium 143, potassium 3.6, chloride 107, CO2 29, BUN 20, creatinine 0.54. Blood gas on 3 liters nasal cannula - pH 7.39, pCO2 50, pO2 127. PAST MEDICAL HISTORY 1. History of stage IV cancer of the lung status post chemotherapy 2. COPD, 3. History of lap band surgery 4. History of osteoarthritis 5. Glaucoma 6. History of knee replacement. MEDICATIONS Currently taking 1. Albuterol/Atrovent nebulizer treatment 2. Atenolol 25 mg a day 3. Vitamin D3 20 mg a day. 4. Spiriva once daily. 5. Vancomycin IV 6. Aztreonam 2 grams q.8 h. 7. Flagyl 500 mg 8-hour. 1. Pravastatin a day, day. ALLERGIES CEPHALEXIN SOCIAL HISTORY She has history of smoking which she quit 20 years ago. She was a house . She is a . Her recently . FAMILY HISTORY She had two children, one son with COPD. REVIEW OF SYSTEMS Until last month, the patient was on her own doing everything for herself. She denies any weight loss, no DVT or pulmonary embolism. No seizure or epilepsy. PHYSICAL EXAMINATION GENERAL: Well nourished female not in any acute distress. VITAL SIGNS: Blood pressure 174/65, heart rate 80, respirations 17. Temperature 97.2 HEENT: Pupils are equal, round and reactive to light. Oral mucosa and nasal mucosa normal. NECK: Supple. JVD not raised. CHEST: Equal bilaterally, no rhonchi. CARDIOVASCULAR: S1, S2 were normal. ABDOMEN: Benign. EXTREMITIES: No edema. IMPRESSION 1. Left basal density possible atelectasis. Pneumonia is less likely. she has no fever or leukocytosis. 2. Change in mental status. 3. Cancer of the lung status post chemotherapy 4. COPD 5. History of arthritis. PLAN I discussed with the patient and her daughter, also discussed with Dr. Martinez. She will get a CT scan of the chest. If she has any significant infiltrate then will continue antibiotic, otherwise, de escalate the antibiotic. I will also check A Legionella pneumococcal antigen. She is not making any sputum. Continue aerosol treatment. Further treatment will depend on the course in the hospital. Thank you, Dr. Hussein Martinez, for this consultation. MD MARK Gruber/ /5:56 PM /6:11 PM MELIDA
[2017-05-13] MEDS ORDERED: IOHEXOL 350 MG/ML 10 ML VIAL (for RAD DIAG) IVCONTRAST ONE (19:25)
--- NOTE | 2017-05-13 20:11 | RADRPT ---
EXAM DATE/TIME: 05/13/2017 19:02 [facility] COMPARISON: No previous studies available for comparison. INDICATIONS : Lung cancer; evaluate for metastatic disease. IV CONTRAST: 71 cc Omnipaque 350 (iohexol) IV ; Cumulative dose for multiple exams. ORAL CONTRAST: No oral contrast ingested. RADIATION DOSE: 19.70 CTDIvol (mGy) ; Combined studies - Thorax/Abdomen/Pelvis MEDICAL HISTORY : Carcinoma, lung. Hypertension. SURGICAL HISTORY : Hysterectomy. Gastric band ENCOUNTER: Subsequent ACUITY: 2 days PAIN SCALE: 0/10 LOCATION: abdomen TECHNIQUE: Volumetric scanning of the abdomen and pelvis was performed. Using automated exposure control and ad justment of the mA and/or kV according to patient size, radiation dose was kept as low as reasonably achievable to obtain optimal diagnostic quality images. DICOM format image data is available electro nically for review and comparison. FINDINGS: LOWER LUNGS: Bilateral pleural effusions and lower lobe atelectasis. LIVER: Small calcified gallstone in gallbladder. Liver is homogeneous and within normal limits. SPLEEN: Normal size without lesion. PANCREAS: Within normal limits. KIDNEYS: Normal in size and shape. There is no mass, stone or hydronephrosis. ADRENAL GLANDS: Within normal limits. VASCULAR: Diffuse arterial calcification. Aortic diameter are within normal limits. BOWEL/MESENTERY: Numerous colonic diverticula. No evidence of acute diverticulitis. No bowel dilatation. No free air o r free fluid. Appendix within normal limits. Evidence of prior gastric banding procedure. ABDOMINAL WALL: Within normal limits. RETROPERITONEUM: There is no lymphadenopathy. BLADDER: No wall thickening or mass. REPRODUCTIVE: Within normal limits. INGUINAL: There is no lymphadenopathy or hernia. MUSCULOSKELETAL: Diffuse superficial soft tissue edema. Prominent degenerative findings of the lumbar spine. CONCLUSION: 1. No evidence of metastatic disease in the abdomen and pelvis. 2. Severe colonic diverticulosis. No evidence of acute diverticulitis. 3. Bilateral pleural effusions. 4. Severe diffuse arterial calcification. 5. Small calcified gallstone in the gallbladder. Alber Amezquita MD on May 13, 2017 at 20:05 Board Certified Radiologist. This report was verified electronically.
--- NOTE | 2017-05-13 20:14 | RADRPT ---
EXAM DATE/TIME: 05/13/2017 19:02 [facility] COMPARISON: CHEST SINGLE AP, May 12, 2017, 16:29. INDICATIONS : Lung cancer; evaluate infiltrate seen on chest x-ray. IV CONTRAST: 71 cc Omnipaque 350 (iohexol) IV ; Cumulative dose for multiple exams. RADIATION DOSE: 19.70 CTDIvol (mGy) ; Combined studies - Thorax/Abdomen/Pelvis MEDICAL HISTORY : Hypertension. Carcinoma, lung. SURGICAL HISTORY : Hysterectomy. Gastric band ENCOUNTER: Subsequent ACUITY: 2 days PAIN SCALE: 0/10 LOCATION: chest TECHNIQUE: Volumetric scanning of the chest was performed. Using automated exposure control and adjustment of t he mA and/or kV according to patient size, radiation dose was kept as low as reasonably achievable to obtain optimal diagnostic quality images. DICOM format image data is available electronically for review and comparison. Follow-up recommendations for detected pulmonary nodules are based at a minimum on nodule size and pa tient risk factors according to Fleischner Society Guidelines. FINDINGS: LUNGS: There is volume loss and atelectasis the left lower lobe. No discrete mass identified. Atelectasis al so noted in the lingula. PLEURA: Small bilateral pleural effusions. MEDIASTINUM: Diffuse aortic calcification. No enlarged lymph nodes. Coronary artery calcifications noted. Diffuse cardiac enlargement. AXILLAE: Within normal limits. No lymphadenopathy. SKELETAL: Degenerative findings of the thoracic spine. MISCELLANEOUS: The visualized upper abdominal organs demonstrate no acute abnormality. CONCLUSION: Atelectasis in the left lower lobe and lingula. Small bilateral pleural effusions. Alber Amezquita MD on May 13, 2017 at 20:10 Board Certified Radiologist. This report was verified electronically.
[2017-05-13] MEDS: PRAVASTATIN SOD 80 MG TAB PO SCH (20:38)
[2017-05-13] MEDS: LATANOPROST 0.005% OPHT SOLN 2.5 ML BTL EACH EYE SCH (21:18)
[2017-05-14] VITALS (13 sets, daily range): BP systolic 96–163; BP diastolic 50–73; PULSE 70–86; RESP 17–24; TEMP 96.7–98.6; O2SAT 97–100
[2017-05-14] MEDS: metroNIDAZOLE 500 MG INJ 100 ML IV SCH ×3 (02:43→17:54)
[2017-05-14] MEDS: AZTREONAM INJ 2,000 MG in SODIUM CHLORIDE 0.9% INJ 100 ML IV SCH ×3 (04:50→21:04)
[2017-05-14 05:19] LABS: AUTOMATED NEUTROPHIL # 4.5 TH/MM3 (1.8-7.7); BASOPHIL % 0.2 % (0.0-2.0); EOSINOPHIL # 0.1 TH/MM3 (0-0.4); EOSINOPHIL % 2.8 % (0.0-4.0); HEMATOCRIT 23.8 % (35.0-46.0); LYMPH % 4.6 % (9.0-44.0); LYMPHOCYTE # 0.2 TH/MM3 (1.0-4.8); MEAN CORPUSCULAR HEMOGLOBIN 32.8 PG (27.0-34.0); MEAN CORPUSCULAR HGB CONC 32.5 % (32.0-36.0); MONO % 2.9 % (0.0-8.0); NEUT % 89.5 % (16.0-70.0); PLATELET COUNT 42 TH/MM3 (150-450); RED BLOOD COUNT 2.35 MIL/MM3 (4.00-5.30); RED CELL DISTRIBUTION WIDTH 20.1 % (11.6-17.2); WHITE BLOOD COUNT 5.1 TH/MM3 (4.0-11.0)
[2017-05-14 05:21] LABS: HEMO FLAGS DIFF FINAL
[2017-05-14 05:34] LABS: ANION GAP 5 MEQ/L (5-15); BLOOD UREA NITROGEN 19 MG/DL (7-18); CHLORIDE 109 MEQ/L (98-107); GLOMERULAR FILTRATION RATE 97 ML/MIN (>89); POTASSIUM 3.1 MEQ/L (3.5-5.1); SODIUM (NA) 145 MEQ/L (136-145)
[2017-05-14 06:01] LABS: FERRITIN 1425 NG/ML (8-252)
--- NOTE | 2017-05-14 06:21 | RADRPT ---
EXAM DATE/TIME: 05/14/2017 04:13 [facility] COMPARISON: CT THORAX W CONTRAST, May 13, 2017, 19:02. CHEST SINGLE AP, May 12, 2017, 16:29. INDICATIONS : Follow up to chest X-Ray on 05/12/2017. MEDICAL HISTORY : Hypertension. Carcinoma, lung. SURGICAL HISTORY : Hysterectomy. Gastric band ENCOUNTER: Subsequent ACUITY: 3 days PAIN SCORE: Non-responsive. LOCATION: Bilateral chest FINDINGS: Chest port is stable in good position. Left base consolidation, mild right base infiltrate and small effusions are unchanged. Cardiac contours are grossly stable. CONCLUSION: No significant interval change. George Camp MD on May 14, 2017 at 6:18 Board Certified Radiologist. This report was verified electronically.
[2017-05-14] MEDS: SODIUM CHLORIDE 0.9% FLUSH 10 ML FLUSH IV FLUSH SCH ×2 (08:19→22:49)
[2017-05-14] MEDS: TIOTROPIUM BROMIDE 18 MCG INH INH SCH (08:20)
[2017-05-14] MEDS: VANCOMYCIN INJ 1,500 MG in SODIUM CHLORID 0.9% 500 ML INJ 500 ML IV SCH (08:20)
[2017-05-14] MEDS: FUROSEMIDE 20 MG TAB PO SCH ×2 (08:22→21:12)
[2017-05-14] MEDS: FOLIC ACID 1 MG TAB PO SCH (08:22)
[2017-05-14] MEDS: DOCUSATE SODIUM 50 MG/SENNA 8.6 MG TAB PO SCH ×2 (08:22→21:11)
[2017-05-14] MEDS: CHOLECALCIFEROL (VIT D3) 5000 UNIT CAP PO SCH (08:22)
[2017-05-14] MEDS: ATENOLOL 25 MG TAB PO SCH (08:22)
[2017-05-14] MEDS ORDERED: PHARMACY ORDERED LAB ONE (08:45)
[2017-05-14] MEDS ORDERED: POTASSIUM CHLORIDE 10 MEQ CAP PO ONE (10:15)
[2017-05-14] MEDS ORDERED: CALCIUM CARBONATE 1.25 GM (CA 500 MG) TAB PO ONE (10:15)
--- NOTE | 2017-05-14 10:28 | MG ---
cc: VAN COY MD Sex: F DATE OF STUDY: 05/13/2020 [facility]. DATE OF : 1940 INTRODUCTION: 77-year-old with history of mental status changes, syncope. DESCRIPTION: Frequent eye movement artifact in the recording with frontal myogenic artifact. Posterior rhythm demonstrates delta theta frequencies 10-40 microvolts. Limited driving with photic stimulation. Single lead EKG showing sinus rhythm. INTERPRETATION Mild to moderate encephalopathy and artifact. Clinical correlation. Van Coy MD MG/ANANYA /9:09 AM /10:11 AM
--- NOTE | 2017-05-14 10:28 | HHI.FPPN ---
Subjective Remarks Patient seen and examined this morning. No acute events overnight. Patient today with stable neurological status. Patient reports no pain today. Reports breathing is okay. Patient oriented to person and present today, but not year. Some answers to questions unintelligible. Objective Vitals Vital Signs Date Time Temp Pulse Resp B/P (MAP) Pulse Ox O2 Delivery O2 Flow Rate FiO2 05/14/17 08:00 97.9 73 18 111/57 (75) 100 05/14/17 04:41 97.4 71 20 110/56 (74) 100 05/14/17 04:00 73 05/14/17 00:00 97.3 79 20 131/61 (84) 100 05/14/17 00:00 79 05/13/17 20:00 78 05/13/17 20:00 98.1 82 20 106/59 (75) 98 05/13/17 18:48 77 05/13/17 16:46 94 Nasal Cannula 2.00 05/13/17 16:06 97.8 77 17 115/60 (78) 98 05/13/17 15:00 74 05/13/17 13:11 74 05/13/17 12:06 97.2 80 17 117/65 (82) 98 I/O 05/13/17 05/13/17 05/13/17 05/14/17 05/14/17 05/14/17 07:00 15:00 23:00 07:00 15:00 23:00 Intake Total 320 ml 710 ml 320 ml 720 ml Balance 320 ml 710 ml 320 ml 720 ml Intake Oral 120 ml 220 ml 120 ml IV Total 200 ml 710 ml 100 ml 600 ml # Voids 2 4 2 # Bowel Movements 1 Result Diagram: 05/14/17 0455 05/14/17 0455 Imaging Last Impressions Chest X-Ray 05/14/17 0000 Signed Impressions: Service Date/Time: Sunday, May 14, 2017 04:13 - CONCLUSION: No significant interval change. George Camp MD Head Magnetic Resonance Angiography 05/13/17 0000 Signed Impressions: Service Date/Time: Saturday, May 13, 2017 15:23 - CONCLUSION: 1. Small 2 mm saccular lateral outpouching of the cavernous carotid artery on the left may represent a tiny aneurysm. 2. 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 Alber Amezquita MD Chest CT 05/13/17 0000 Signed Impressions: Service Date/Time: Saturday, May 13, 2017 19:02 - CONCLUSION: Atelectasis in the left lower lobe and lingula. Small bilateral pleural effusions. Alber Amezquita MD Brain MRI 05/13/17 0000 Signed Impressions: Service Date/Time: Saturday, May 13, 2017 15:23 - CONCLUSION: No acute intracranial findings. Alber Amezquita MD Abdomen/Pelvis CT 05/13/17 0000 Signed Impressions: Service Date/Time: Saturday, May 13, 2017 19:02 - CONCLUSION: 1. No evidence of metastatic disease in the abdomen and pelvis. 2. Severe colonic diverticulosis. No evidence of acute diverticulitis. 3. Bilateral pleural effusions. 4. Severe diffuse arterial calcification. 5. Small calcified gallstone in the gallbladder. Alber Amezquita MD Head CT 05/12/17 0000 Signed Impressions: Service Date/Time: Friday, May 12, 2017 18:34 - CONCLUSION: 1. Age-appropriate atrophy. 2. No acute findings in the brain. Sterling Osuna MD Objective Remarks GENERAL: This is a well-nourished, well-developed patient, in no apparent distress. Lying in bed. SKIN: No rashes, ecchymoses or lesions. Cool and dry. Back examined- midline mild stage 1 ulceration EYES: Extraocular motions grossly intact. No scleral icterus. No injection or drainage. CARDIOVASCULAR: Regular rate and rhythm without murmurs RESPIRATORY: Distant and course breath sounds, diminished in bases GASTROINTESTINAL: Abdomen soft, non-tender, nondistended. MUSCULOSKELETAL: No calf pain. Mild pitting edema bilaterally NEUROLOGICAL: Awake; oriented to president but not year or location. Grossly normal CN. Grossly normal peripheral motor/sensory function A/P Assessment and Plan 77 year old female with history of COPD, lung cancer, recent hospitalization with pneumonia and sepsis presents with altered mental status. Admitted for workup of AMS and treatment of suspected pneumonia and UTI Discharge Planning Pending oncology, neurology workup and treatment of UTI/pneumonia Problem List: (1) Altered mental status ICD Codes: R41.82 - Altered mental status, unspecified Status: Acute Plan: EKGs: sinus rhythm with 1st degree AV block, R bundle block, left anterior fascicular block. No ST changes concerning for ACS -Neurology consulted -EEG pending -MRI: no acute disease -MRA: possible tiny aneurysm of carotid artery -ESR/CRP- pending -Neuro checks Q4. Fall precautions. -Swallow study- mechanical soft diet, thin liquids -Treatment for pneumonia -Aztreonam, Metronidazole, Vancomycin -Continue PT CXR shows cardiomegaly mild failure and consolidative changes left base. ABG with pH of 7.39, PO2 127, PCO2 50, HCO3 29. 100% on 2L O2 U/A shows moderate occult blood, moderate leukocyte esterase, occasional bacteria. CT head shows no acute change. No focal neurologic deficits reported, pt nonverbal, but follows commands EKG shows left and right bundle branch blocks. No pathologic ST changes. Blood cultures: pending; negative x1 day (2) PNA (pneumonia) ICD Codes: J18.9 - Pneumonia, unspecified organism Status: Acute Plan: -Supplemental O2 and pulse ox monitoring. -Continue empiric antibiotics -Vancomycin IV every 12 hours. Pharmacy consulted. -Aztreonam 2g every 8 hours -Flagyl 500mg every 8 hours -Continue bronchodilation -Duonebs Q 4 hours PRN -Will check urinary strep pneumonia/legionella antigens -Will repeat CXR -Pulmonology consulted -Legionella antigen negative; possible pneumococcal urinary ag -CT chest: atelectasis in left lower lobe, small bilateral pleural effusions CXR shows consolidative changes in left base Qualifies as HCAP as patient recently came from [place] and recent hospitalization Unknown pneumonia vaccine status Blood cultures: pending; negative to date Sputum culture pending (3) UTI (urinary tract infection) ICD Codes: N39.0 - Urinary tract infection, site not specified Plan: -Continue antibiotics as above -Careful with fluids due to fluid/cardiac status -Urine culture: GNR, ID pending Impression:UA on admission with moderate occult blood, etc. sugars, occasional bacteria (4) CHF (congestive heart failure) ICD Codes: I50.9 - Heart failure, unspecified Status: Chronic Plan: Possible history of CHF. Chest x-ray shows cardiomegaly and mild failure. BNP 2870 -Lasix 20mg BID -Consider 2D echo -Monitor fluid status (5) Thrombocytopenia ICD Codes: D69.6 - Thrombocytopenia, unspecified Status: Acute Plan: Trending in 40s -Trend CBCs -Monitor for signs of bleeding -Hold chemoprophylaxis (6) Lung cancer ICD Codes: C34.90 - Malignant neoplasm of unspecified part of unspecified bronchus or lung Plan: Oncology consulted (reportedly known to Dr. Adams)-appreciate recs -CT thorax: no signs of mets in abdomen/pelvis -B12, folate wnl Impression: History of stage IV non-small cell lung cancer. Has been on chemotherapy in the past. Chest port in place. Off chemotherapy for the last 6- 8 weeks. (7) HTN (hypertension) ICD Codes: I10 - Essential (primary) hypertension Status: Chronic Plan: Impression: Normotensive on admission -Continue home atenolol -Monitor vitals (8) FEN Status: Acute Plan: Fluids: No IV fluids at this time Electrolytes: hypokalemia, replacing Nutrition: Mechanical soft diet, thin liquids per speech therapy DVT ppx: Hold chemo ppx due to thrombocytopenia; SCDs Problem Qualifiers (1) Altered mental status: Qualified Codes: R41.82 - Altered mental status, unspecified (2) PNA (pneumonia): Qualified Codes: J18.9 - Pneumonia, unspecified organism (3) UTI (urinary tract infection): Qualified Codes: N30.00 - Acute cystitis without hematuria (4) CHF (congestive heart failure): Qualified Codes: I50.9 - Heart failure, unspecified (5) Lung cancer: Qualified Codes: C34.90 - Malignant neoplasm of unspecified part of unspecified bronchus or lung (6) HTN (hypertension): Qualified Codes: I10 - Essential (primary) hypertension Jagdish Lomeli MD, R2 May 14, 2017 10:28
--- NOTE | 2017-05-14 11:23 | HHI.PR ---
Review/Management Diagnosis/Plan: (1) Acute encephalopathy ICD Codes: G93.40 - Encephalopathy, unspecified Status: Acute Plan: metabolic 2/2 hypercapnia/chf exacerbation. r/o complex partial sz vs brain met vs infarct mental status better recs check mri spine with le weakness f/u esr./crp-pending seen by onc and pulm follow exam (2) Lung cancer ICD Codes: C34.90 - Malignant neoplasm of unspecified part of unspecified bronchus or lung (3) CHF (congestive heart failure) ICD Codes: I50.9 - Heart failure, unspecified Status: Chronic (4) HTN (hypertension) ICD Codes: I10 - Essential (primary) hypertension Status: Chronic Subjective Subjective Comments No acute events reported No headache No chest pain No dyspnea Active Medications Current Medications Medications (Trade) Dose Ordered Sig/Velvet Route Start Time Stop Time Status Last Admin (NS Flush) 2 ml UNSCH PRN IV FLUSH 05/12/17 18:30 (NS Flush) 2 ml BID IV FLUSH 05/12/17 21:00 05/14/17 08:19 (Zofran Inj) 4 mg Q6H PRN IVP 05/12/17 18:30 (Tylenol) 650 mg Q6H PRN PO 05/12/17 18:30 (Kaykay-Colace) 1 tab BID PO 05/12/17 21:00 05/14/17 08:22 (Milk Of Magnesia Liq) 30 ml Q12H PRN PO 05/12/17 18:30 (Senokot) 17.2 mg Q12H PRN PO 05/12/17 18:30 (Dulcolax Supp) 10 mg DAILY PRN RECTAL 05/12/17 18:30 (Lactulose Liq) 30 ml DAILY PRN PO 05/12/17 18:30 (Tenormin) 25 mg DAILY PO 05/13/17 09:00 05/14/17 08:22 (Vitamin D3) 5,000 units DAILY PO 05/13/17 09:00 05/14/17 08:22 (Folate) 1 mg DAILY PO 05/13/17 09:00 05/14/17 08:22 (Xalatan 0.005% Opth Soln) 1 drop HS EACH EYE 05/12/17 21:00 05/13/17 21:18 (Spiriva Inh) 18 mcg DAILY INH 05/13/17 09:00 05/14/17 08:20 (Pravachol) 80 mg HS PO 05/12/17 21:00 05/13/17 20:38 Aztreonam 2000 mg/ Sodium Chloride 100 ml @ 200 mls/hr Q8H IV 05/13/17 04:00 05/14/17 04:50 Vancomycin HCl 1500 mg/Sodium Chloride 515 ml @ 250 mls/hr Q12H IV 05/13/17 09:00 Future Hold 05/14/17 08:20 Metronidazole 100 ml @ 100 mls/hr Q8H IV 05/13/17 02:00 05/14/17 10:50 Pharmacy Profile Note 0 ml @ 0 mls/hr UNSCH OTHER 05/12/17 18:45 (Duoneb Neb) 1 ampule Q4HR NEB PRN NEB 05/13/17 10:45 (Lasix) 20 mg BID PO 05/14/17 21:00 Allergies Allergies Coded Allergies codeine (Verified Allergy, Intermediate, 05/12/17) cephalexin (Verified Allergy, Unknown, 05/12/17) Review of Systems All other ROS: ROS reviewed as documented in chart Exam I&O / VS 05/14/17 05/14/17 05/15/17 15:00 23:00 07:00 Intake Total 500 ml Balance 500 ml IV Total 500 ml Vital Signs Date Time Temp Pulse Resp B/P (MAP) Pulse Ox O2 Delivery O2 Flow Rate FiO2 05/14/17 11:11 72 05/14/17 08:00 97.9 73 18 111/57 (75) 100 05/14/17 04:41 97.4 71 20 110/56 (74) 100 05/14/17 04:00 73 05/14/17 00:00 97.3 79 20 131/61 (84) 100 05/14/17 00:00 79 05/13/17 20:00 78 05/13/17 20:00 98.1 82 20 106/59 (75) 98 05/13/17 18:48 77 05/13/17 16:46 94 Nasal Cannula 2.00 05/13/17 16:06 97.8 77 17 115/60 (78) 98 05/13/17 15:00 74 05/13/17 13:11 74 05/13/17 12:06 97.2 80 17 117/65 (82) 98 Exam Comments alert, obese, ox 2, not to date, follows better, on O2, neck supple, follows some simple request, eomi, vff, ou dense opacities, 3-2mm, face sym, generalized weakness dawn to gravity, withdraws to tactile with le weakness, planterflexor Objective Micro and Labs Laboratory Tests Test 05/14/17 04:55 05/14/17 08:15 White Blood Count 5.1 Red Blood Count 2.35 Hemoglobin 7.7 Hematocrit 23.8 Mean Corpuscular Volume 101.0 Mean Corpuscular Hemoglobin 32.8 Mean Corpuscular Hemoglobin Concent 32.5 Red Cell Distribution Width 20.1 Platelet Count 42 Mean Platelet Volume 9.6 Neutrophils (%) (Auto) 89.5 Lymphocytes (%) (Auto) 4.6 Monocytes (%) (Auto) 2.9 Eosinophils (%) (Auto) 2.8 Basophils (%) (Auto) 0.2 Neutrophils # (Auto) 4.5 Lymphocytes # (Auto) 0.2 Monocytes # (Auto) 0.1 Eosinophils # (Auto) 0.1 Basophils # (Auto) 0.0 CBC Comment DIFF FINAL Differential Comment Fibrinogen 465 Blood Urea Nitrogen 19 Creatinine 0.60 Random Glucose 110 Calcium Level 8.0 Sodium Level 145 Potassium Level 3.1 Chloride Level 109 Carbon Dioxide Level 31.0 Anion Gap 5 Estimat Glomerular Filtration Rate 97 Ferritin 1425 B-Type Natriuretic Peptide 2870 Carcinoembryonic Antigen 2.8 Vitamin B12 Level 918 Folate GREATER THAN 20.0 Vancomycin Level Trough 31.2 Date/Time Source Procedure Growth Status 05/12/17 21:48 Blood Peripheral Aerobic Blood Culture - Preliminary NO GROWTH IN 2 DAYS Resulted 05/12/17 21:48 Blood Peripheral Anaerobic Blood Culture - Preliminary NO GROWTH IN 2 DAYS Resulted 05/12/17 16:23 Urine Clean Catch Legionella Antigen - Final PRESUMPTIVE NEGATIVE FOR LEGIONELLA P... Complete 05/12/17 16:23 Streptococcus pneumoniae Antigen (M - Final Pos S.pneumoniae Antigen Complete Problem Qualifiers (1) Lung cancer: Qualified Codes: C34.90 - Malignant neoplasm of unspecified part of unspecified bronchus or lung (2) CHF (congestive heart failure): Qualified Codes: I50.9 - Heart failure, unspecified (3) HTN (hypertension): Qualified Codes: I10 - Essential (primary) hypertension Jewel Prescott MD May 14, 2017 11:23
[2017-05-14] MEDS ORDERED: GADODIAMIDE PF 287 MG/ML 20 ML VIAL (for RAD MRI) IVCONTRAST ONE (12:45)
--- NOTE | 2017-05-14 13:19 | RADRPT ---
EXAM DATE/TIME: 05/14/2017 12:07 [facility] COMPARISON: No previous studies available for comparison. INDICATIONS : Metastatic disease. CONTRAST: 20 cc Omniscan (gadodiamide) IV MEDICAL HISTORY : Carcinoma, lung. SURGICAL HISTORY : Total knee replacement, left. Total knee replacement, right. ENCOUNTER: Initial ACUITY: 1 day PAIN SCORE: 4/10 LOCATION: Parasp[facility] TECHNIQUE: Multiplanar multisequence MRI of the thoracic spine was performed. FINDINGS: There is no marrow replacement to suggest metastatic disease. There is bland compression fracture T6 with minimal compromise of the body height by approximately 20%. There is no significant neural imp ingement from this. There mild degenerative changes at T9-T10 T10-T11 and T12-L1. These are causing mild airspace ridgin g without spinal stenosis. Small bilateral pleural effusions are evident. CONCLUSION: Subacute compression T6 Mild degenerative change without cord impingement There is no evidence for metastatic disease. Peter Couch MD FACR on May 14, 2017 at 13:16 Board Certified Radiologist. This report was verified electronically.
--- NOTE | 2017-05-14 13:23 | RADRPT ---
EXAM DATE/TIME: 05/14/2017 12:07 [facility] COMPARISON: CT THORAX W CONTRAST, May 13, 2017, 19:02. CT ABDOMEN & PELVIS W CONTRAST, May 13, 2017, 1 9:02. INDICATIONS : Metastatic disease. CONTRAST: 20 cc Omniscan (gadodiamide) IV MEDICAL HISTORY : Carcinoma, lung. SURGICAL HISTORY : Total knee replacement, left. Total knee replacement, right. ENCOUNTER: Initial ACUITY: 1 day PAIN SCORE: 4/10 LOCATION: Paraspinal TECHNIQUE: Multiplanar, multisequence MRI examination of the cervical spine was performed. FINDINGS: VERTEBRAE: Marrow is homogeneous without replacement to suggest metastatic disease. ALIGNMENT: No evidence of subluxation. CORD: Normal configuration and signal. POST FOSSA: The cerebellar tonsils are normal in position. POST-CONTRAST: No abnormal areas of enhancement are seen. C2-C3: The thecal sac has a normal configuration. There is no evidence of disc herniation or spinal canal stenosis. The neural foramina are patent bilaterally. C3-C4: Mild interspace ridging present without significant spinal stenosis. C4-C5: Moderate interspace ridging present causing some flattening of the articular space with mild bilatera l neural foramina encroachment C5-C6: Mild interspace ridging without significant spinal stenosis C6-C7: Mild interspace ridging without significant spinal stenosis C7-T1: The thecal sac has a normal configuration. There is no evidence of disc herniation or spinal canal s tenosis. The neural foramina are patent bilaterally. There is no abnormal contrast enhancement. CONCLUSION: Negative for metastatic disease. Mild degenerative changes. Peter Couch MD FACR on May 14, 2017 at 13:18 Board Certified Radiologist. This report was verified electronically.
--- NOTE | 2017-05-14 13:35 | RADRPT ---
EXAM DATE/TIME: 05/14/2017 12:07 [place] COMPARISON: No previous studies available for comparison. INDICATIONS : Metastatic disease. CONTRAST: 20 cc Omniscan (gadodiamide) IV MEDICAL HISTORY : Carcinoma, lung. SURGICAL HISTORY : Total knee replacement, left. Total knee replacement, right. ENCOUNTER: Initial ACUITY: 1 day PAIN SCORE: 4/10 LOCATION: [facility] TECHNIQUE: Multiplanar multisequence MRI of the lumbar spine was performed with and without contrast. FINDINGS: The most caudal appearing lumbar vertebra is numbered as L5. VERTEBRAE: Homogeneous signal. Normal alignment. CONUS: Normal level and configuration. POST CONTRAST: No abnormal areas of contrast enhancement are seen. T12-L1: Mildridging is present without significant spinal stenosis. L1-L2: The thecal sac has a normal diameter. No evidence of disc bulge or protrusion. The neural foramina are patent bilaterally. L2-L3: The thecal sac has a normal diameter. No evidence of disc bulge or protrusion. The neural foramina are patent bilaterally. L3-L4: The thecal sac has a normal diameter. No evidence of disc bulge or protrusion. The neural foramina are patent bilaterally. L4-L5: Mild distention is present with moderate degenerative changes in the facets. There is minimal bilate ral neural foramina encroachment. L5-S1: Marked loss of disc space with interspace imaging and bilateral foraminal encroachment. Which is wor se on the right than the left. SI joints are normal. CONCLUSION: Degenerative changes probably facet. There is no no evidence for metastatic disease. There is no ab normal contrast enhancement. Peter Couch MD FACR on May 14, 2017 at 13:32 Board Certified Radiologist. This report was verified electronically.
[2017-05-14] MEDS ORDERED: SODIUM CHLOR 0.9% 250 ML INJ 250 ML IV ONE (15:00)
[2017-05-14] MEDS ORDERED: FUROSEMIDE 20 MG/2 ML VIAL IV PUSH ONE (15:00)
--- NOTE | 2017-05-14 15:14 | PD.ONC.PN ---
Subjective Subjective Remarks patient remains sob at rest Objective Data Date Time Temp Pulse Resp B/P (MAP) Pulse Ox O2 Delivery O2 Flow Rate FiO2 05/14/17 12:41 70 05/14/17 12:00 97.5 76 17 96/61 (73) 100 05/14/17 11:11 72 05/14/17 08:00 97.9 73 18 111/57 (75) 100 05/14/17 04:41 97.4 71 20 110/56 (74) 100 05/14/17 04:00 73 05/14/17 00:00 97.3 79 20 131/61 (84) 100 05/14/17 00:00 79 05/13/17 20:00 78 05/13/17 20:00 98.1 82 20 106/59 (75) 98 05/13/17 18:48 77 05/13/17 16:46 94 Nasal Cannula 2.00 05/13/17 16:06 97.8 77 17 115/60 (78) 98 05/13/17 15:00 74 05/14/17 05/14/17 05/14/17 07:00 15:00 23:00 Intake Total 720 ml 840 ml Balance 720 ml 840 ml Result Diagram: 05/14/17 0455 05/14/17 0455 Laboratory Results Laboratory Tests Test 05/14/17 04:55 05/14/17 08:15 White Blood Count 5.1 TH/MM3 Red Blood Count 2.35 MIL/MM3 Hemoglobin 7.7 GM/DL Hematocrit 23.8 % Mean Corpuscular Volume 101.0 FL Mean Corpuscular Hemoglobin 32.8 PG Mean Corpuscular Hemoglobin Concent 32.5 % Red Cell Distribution Width 20.1 % Platelet Count 42 TH/MM3 Mean Platelet Volume 9.6 FL Neutrophils (%) (Auto) 89.5 % Lymphocytes (%) (Auto) 4.6 % Monocytes (%) (Auto) 2.9 % Eosinophils (%) (Auto) 2.8 % Basophils (%) (Auto) 0.2 % Neutrophils # (Auto) 4.5 TH/MM3 Lymphocytes # (Auto) 0.2 TH/MM3 Monocytes # (Auto) 0.1 TH/MM3 Eosinophils # (Auto) 0.1 TH/MM3 Basophils # (Auto) 0.0 TH/MM3 CBC Comment DIFF FINAL Differential Comment Fibrinogen 465 mg/dL Blood Urea Nitrogen 19 MG/DL Creatinine 0.60 MG/DL Random Glucose 110 MG/DL Calcium Level 8.0 MG/DL Sodium Level 145 MEQ/L Potassium Level 3.1 MEQ/L Chloride Level 109 MEQ/L Carbon Dioxide Level 31.0 MEQ/L Anion Gap 5 MEQ/L Estimat Glomerular Filtration Rate 97 ML/MIN Ferritin 1425 NG/ML B-Type Natriuretic Peptide 2870 PG/ML Carcinoembryonic Antigen 2.8 NG/ML Vitamin B12 Level 918 PG/ML Folate GREATER THAN 20.0 NG/ML Vancomycin Level Trough 31.2 MCG/ML Culture Results Microbiology Date/Time Source Procedure Growth Status 05/12/17 21:48 Blood Peripheral Aerobic Blood Culture - Preliminary NO GROWTH IN 2 DAYS Resulted 05/12/17 21:48 Blood Peripheral Anaerobic Blood Culture - Preliminary NO GROWTH IN 2 DAYS Resulted 05/12/17 21:40 Blood Peripheral Aerobic Blood Culture - Preliminary NO GROWTH IN 2 DAYS Resulted 05/12/17 21:40 Blood Peripheral Anaerobic Blood Culture - Preliminary NO GROWTH IN 2 DAYS Resulted 05/12/17 16:23 Urine Clean Catch Legionella Antigen - Final PRESUMPTIVE NEGATIVE FOR LEGIONELLA P... Complete 05/12/17 16:23 Streptococcus pneumoniae Antigen (M - Final Pos S.pneumoniae Antigen Complete 05/12/17 16:23 Urine Clean Catch Urine Culture - Final Escherichia Coli Complete Imaging Studies Last 48 hours Impressions Thoracic Spine MRI 05/14/17 0000 Signed Impressions: Service Date/Time: Sunday, May 14, 2017 12:07 - CONCLUSION: Subacute compression T6 Mild degenerative change without cord impingement There is no evidence for metastatic disease. Peter Couch MD FACR Lumbar Spine MRI 05/14/17 0000 Signed Impressions: Service Date/Time: Sunday, May 14, 2017 12:07 - CONCLUSION: Degenerative changes probably facet. There is no no evidence for metastatic disease. There is no abnormal contrast enhancement. Peter Couch MD FACR Chest X-Ray 05/14/17 0000 Signed Impressions: Service Date/Time: Sunday, May 14, 2017 04:13 - CONCLUSION: No significant interval change. George Camp MD Cervical Spine MRI 05/14/17 0000 Signed Impressions: Service Date/Time: Sunday, May 14, 2017 12:07 - CONCLUSION: Negative for metastatic disease. Mild degenerative changes. Peter Couch MD FACR Head Magnetic Resonance Angiography 05/13/17 0000 Signed Impressions: Service Date/Time: Saturday, May 13, 2017 15:23 - CONCLUSION: 1. Small 2 mm saccular lateral outpouching of the cavernous carotid artery on the left may represent a tiny aneurysm. 2. 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 Alber Amezquita MD Chest CT 05/13/17 0000 Signed Impressions: Service Date/Time: Saturday, May 13, 2017 19:02 - CONCLUSION: Atelectasis in the left lower lobe and lingula. Small bilateral pleural effusions. Alber Amezquita MD Brain MRI 05/13/17 0000 Signed Impressions: Service Date/Time: Saturday, May 13, 2017 15:23 - CONCLUSION: No acute intracranial findings. Alber Amezquita MD Abdomen/Pelvis CT 05/13/17 0000 Signed Impressions: Service Date/Time: Saturday, May 13, 2017 19:02 - CONCLUSION: 1. No evidence of metastatic disease in the abdomen and pelvis. 2. Severe colonic diverticulosis. No evidence of acute diverticulitis. 3. Bilateral pleural effusions. 4. Severe diffuse arterial calcification. 5. Small calcified gallstone in the gallbladder. Alber Amezquita MD Chest X-Ray 05/12/17 1506 Signed Impressions: Service Date/Time: Friday, May 12, 2017 16:29 - CONCLUSION: Cardiomegaly with mild failure and consolidative changes left base. I have no prior films for comparison. Peter Couch MD FACR Last 24 hours Impressions Thoracic Spine MRI 05/14/17 0000 Signed Impressions: Service Date/Time: Sunday, May 14, 2017 12:07 - CONCLUSION: Subacute compression T6 Mild degenerative change without cord impingement There is no evidence for metastatic disease. Peter Couch MD FACR Lumbar Spine MRI 05/14/17 0000 Signed Impressions: Service Date/Time: Sunday, May 14, 2017 12:07 - CONCLUSION: Degenerative changes probably facet. There is no no evidence for metastatic disease. There is no abnormal contrast enhancement. Peter Couch MD FACR Chest X-Ray 05/14/17 0000 Signed Impressions: Service Date/Time: Sunday, May 14, 2017 04:13 - CONCLUSION: No significant interval change. George Camp MD Cervical Spine MRI 05/14/17 0000 Signed Impressions: Service Date/Time: Sunday, May 14, 2017 12:07 - CONCLUSION: Negative for metastatic disease. Mild degenerative changes. Peter Couch MD FACR Administered Medications Medications (Trade) Dose Ordered Sig/Velvet Route PRN Reason Start Time Stop Time Status Last Admin Dose Admin Sodium Chloride (NS Flush) 2 ml BID IV FLUSH 05/12/17 21:00 05/14/17 08:19 Senna/Docusate Sodium ([place]-Colace) 1 tab BID PO 05/12/17 21:00 05/14/17 08:22 Atenolol (Tenormin) 25 mg DAILY PO 05/13/17 09:00 05/14/17 08:22 Cholecalciferol (Vitamin D3) 5,000 units DAILY PO 05/13/17 09:00 05/14/17 08:22 Folic Acid (Folate) 1 mg DAILY PO 05/13/17 09:00 05/14/17 08:22 Latanoprost (Xalatan 0.005% Opt Soln) 1 drop HS EACH EYE 05/12/17 21:00 05/13/17 21:18 Tiotropium [place] (Spiriva Inh) 18 mcg DAILY INH 05/13/17 09:00 05/14/17 08:20 Pravastatin Sodium (Pravachol) 80 mg HS PO 05/12/17 21:00 05/13/17 20:38 Aztreonam 2000 mg/ Sodium Chloride 100 ml @ 200 mls/hr Q8H IV 05/13/17 04:00 05/14/17 14:07 Vancomycin HCl 1500 mg/Sodium Chloride 515 ml @ 250 mls/hr Q12H IV 05/13/17 09:00 Future Hold 05/14/17 08:20 Metronidazole 100 ml @ 100 mls/hr Q8H IV 05/13/17 02:00 05/14/17 10:50 Objective Remarks GENERAL: obese SKIN: Warm and dry. HEAD: Normocephalic. EYES: No scleral icterus. No injection or drainage. NECK: Supple, trachea midline. No JVD or lymphadenopathy. LYMPHATIC: No adenopathy. CARDIOVASCULAR: Regular rate and rhythm without murmurs. RESPIRATORY: decreased sounds at bases with bilateral wheezes. . GASTROINTESTINAL: Abdomen soft, non-tender, nondistended. EXTREMITIES: +1 edema MUSCULOSKELETAL: poor muscle tone NEUROLOGICAL: No obvious focal deficit. Awake, alert, and oriented x3. PSYCHIATRIC: Appropriate mood and affect; insight and judgment normal. Assessment/Plan Assessment 1: history of stage IV lung cancer. I have discussed the films with Dr. Couch and there is no radiographic evidence of cancer which is unexpected given her diagnosis. Have tried to reach her oncologist and will try again on Monday. 2: BNP almost 3,000 and she has bilateral effusions all suggesting CHF. Have placed consult with cardiology and reviewed case with Dr. Martinez 3: anemia and thrombocytopenia: I am surprised to this degree at this time. Her last chemotherapy was approximately 8 weeks ago and according to the daughter was a maintenance treatment. This does not fully explain the cytopenias we are seeing at the present. Will transfuse 1 unit of packed cells today. check cbc plat in am . 4: Situation reviewed with the patient's daughter and I explained we do not yet have an explanation for her illness which has resulted in two recent hospitalizations with the last one for one month. Hussein Martinez MD May 14, 2017 15:14
--- NOTE | 2017-05-14 15:49 | HHI.PR ---
Subjective Remarks 77 YOWF with h/o ca lung, s/p chemo, COPD CT chest left basal atelactesis, no infilt has pl effusion Daughter at BS Objective Vital Signs Vital Signs Date Time Temp Pulse Resp B/P (MAP) Pulse Ox O2 Delivery O2 Flow Rate FiO2 05/14/17 12:41 70 05/14/17 12:00 97.5 76 17 96/61 (73) 100 05/14/17 11:11 72 05/14/17 08:00 97.9 73 18 111/57 (75) 100 05/14/17 04:41 97.4 71 20 110/56 (74) 100 05/14/17 04:00 73 05/14/17 00:00 97.3 79 20 131/61 (84) 100 05/14/17 00:00 79 05/13/17 20:00 78 05/13/17 20:00 98.1 82 20 106/59 (75) 98 05/13/17 18:48 77 05/13/17 16:46 94 Nasal Cannula 2.00 05/13/17 16:06 97.8 77 17 115/60 (78) 98 I/O 05/13/17 05/13/17 05/13/17 05/14/17 05/14/17 05/14/17 07:00 15:00 23:00 07:00 15:00 23:00 Intake Total 320 ml 710 ml 320 ml 720 ml 840 ml Balance 320 ml 710 ml 320 ml 720 ml 840 ml Intake Oral 120 ml 220 ml 120 ml 240 ml IV Total 200 ml 710 ml 100 ml 600 ml 600 ml # Voids 2 4 2 1 # Bowel Movements 1 0 Result Diagram: 05/14/17 0455 05/14/17 0455 Objective Remarks GENERAL: WBWN wf, mild sob, tired SKIN: Warm and dry. HEAD: Normocephalic. EYES: No scleral icterus. No injection or drainage. NECK: Supple, trachea midline. No JVD or lymphadenopathy. CARDIOVASCULAR: Regular rate and rhythm without murmurs, gallops, or rubs. RESPIRATORY: Breath sounds equal bilaterally. No accessory muscle use. GASTROINTESTINAL: Abdomen soft, non-tender, nondistended. MUSCULOSKELETAL: No cyanosis, or edema. BACK: Nontender without obvious deformity. No CVA tenderness. A/P Assessment and Plan Left basal infilt No Infilterates Pneumococcal Ag positive prob from previous infection UTI ? CHF Anemia PLAN: DW Pt's daughter JODIE Rowe She will need Abx for UTI Gentle diurease PRBC 1 unit Cardiology consulted Laith Martinez MD May 14, 2017 15:49
[2017-05-14] MEDS ORDERED: ACETAMINOPHEN 325 MG TAB PO PRN (16:30)
[2017-05-14] MEDS ORDERED: diphenhydrAMINE HCL 25 MG CAP PO PRN (16:30)
[2017-05-14] MEDS: LATANOPROST 0.005% OPHT SOLN 2.5 ML BTL EACH EYE SCH (21:00)
[2017-05-14] MEDS: PRAVASTATIN SOD 80 MG TAB PO SCH (21:09)
[2017-05-15] VITALS (9 sets, daily range): BP systolic 105–124; BP diastolic 47–75; PULSE 69–89; RESP 18–22; TEMP 96–97.7; O2SAT 91–100
[2017-05-15] MEDS: metroNIDAZOLE 500 MG INJ 100 ML IV SCH ×3 (02:32→18:09)
[2017-05-15] MEDS: AZTREONAM INJ 2,000 MG in SODIUM CHLORIDE 0.9% INJ 100 ML IV SCH ×3 (03:42→20:26)
[2017-05-15 05:51] LABS: AUTOMATED NEUTROPHIL # 3.8 TH/MM3 (1.8-7.7); BASOPHIL % 0.2 % (0.0-2.0); EOSINOPHIL # 0.1 TH/MM3 (0-0.4); EOSINOPHIL % 2.6 % (0.0-4.0); HEMATOCRIT 26.8 % (35.0-46.0); LYMPH % 5.3 % (9.0-44.0); LYMPHOCYTE # 0.2 TH/MM3 (1.0-4.8); MEAN CELL VOLUME 99.7 FL (80.0-100.0); MEAN CORPUSCULAR HEMOGLOBIN 33.2 PG (27.0-34.0); MEAN CORPUSCULAR HGB CONC 33.3 % (32.0-36.0); MONO % 3.7 % (0.0-8.0); NEUT % 88.2 % (16.0-70.0); PLATELET COUNT 42 TH/MM3 (150-450); RED BLOOD COUNT 2.69 MIL/MM3 (4.00-5.30); RED CELL DISTRIBUTION WIDTH 19.3 % (11.6-17.2); WHITE BLOOD COUNT 4.4 TH/MM3 (4.0-11.0)
[2017-05-15 06:10] LABS: BICARBONATE 30.2 MEQ/L (21.0-32.0); MAGNESIUM 1.8 MG/DL (1.5-2.5); POTASSIUM 3.6 MEQ/L (3.5-5.1)
[2017-05-15 06:19] LABS: HEMO FLAGS AUTO DIFF
[2017-05-15 07:05] LABS: WESTERGREN SEDIMENTATION RATE 76 mm/hr (0-30)
[2017-05-15 07:15] LABS: ACANTHOCYTES OCC (NORMAL); OVALOCYTES 1+ (NORMAL); PLATELET ESTIMATE SMEAR LOW (NORMAL); PLATELET MORPHOLOGY ENLARGED (NORMAL); SCAN/DIFF AUTO DIFF CONFIRMED
--- NOTE | 2017-05-15 09:39 | PD.ONC.PN ---
Subjective Subjective Remarks remains weak and struggles to breath with continued wheezing. Objective Data Date Time Temp Pulse Resp B/P (MAP) Pulse Ox O2 Delivery O2 Flow Rate FiO2 05/15/17 08:29 96.0 85 18 119/75 (90) 98 05/15/17 00:00 97.3 89 20 114/47 (69) 98 05/15/17 00:00 97.3 82 20 112/64 100 05/14/17 23:11 98.6 82 20 112/65 (81) 100 05/14/17 21:42 97 Nasal Cannula 3.00 05/14/17 21:09 77 05/14/17 20:56 97.6 85 24 114/68 (83) 100 05/14/17 17:52 96.7 71 18 119/50 (73) 99 05/14/17 16:00 97.4 86 18 163/73 (103) 100 05/14/17 12:41 70 05/14/17 12:00 97.5 76 17 96/61 (73) 100 05/14/17 11:11 72 05/15/17 05/15/17 05/15/17 07:00 15:00 23:00 Intake Total 835 ml Balance 835 ml Result Diagram: 05/15/17 0514 05/15/17 0514 Laboratory Results Laboratory Tests Test 05/15/17 05:14 White Blood Count 4.4 TH/MM3 Red Blood Count 2.69 MIL/MM3 Hemoglobin 8.9 GM/DL Hematocrit 26.8 % Mean Corpuscular Volume 99.7 FL Mean Corpuscular Hemoglobin 33.2 PG Mean Corpuscular Hemoglobin Concent 33.3 % Red Cell Distribution Width 19.3 % Platelet Count 42 TH/MM3 Mean Platelet Volume 9.3 FL Neutrophils (%) (Auto) 88.2 % Lymphocytes (%) (Auto) 5.3 % Monocytes (%) (Auto) 3.7 % Eosinophils (%) (Auto) 2.6 % Basophils (%) (Auto) 0.2 % Neutrophils # (Auto) 3.8 TH/MM3 Lymphocytes # (Auto) 0.2 TH/MM3 Monocytes # (Auto) 0.2 TH/MM3 Eosinophils # (Auto) 0.1 TH/MM3 Basophils # (Auto) 0.0 TH/MM3 CBC Comment AUTO DIFF Differential Comment AUTO DIFF CONFIRMED Platelet Estimate LOW Platelet Morphology Comment ENLARGED Ovalocytes 1+ Acanthocytes OCC Erythrocyte Sedimentation Rate 76 mm/hr Blood Urea Nitrogen 19 MG/DL Creatinine 0.55 MG/DL Random Glucose 86 MG/DL Calcium Level 7.9 MG/DL Phosphorus Level 2.4 MG/DL Magnesium Level 1.8 MG/DL Sodium Level 146 MEQ/L Potassium Level 3.6 MEQ/L Chloride Level 110 MEQ/L Carbon Dioxide Level 30.2 MEQ/L Anion Gap 6 MEQ/L Estimat Glomerular Filtration Rate 107 ML/MIN C-Reactive Protein 3.32 MG/DL Random Vancomycin Level 28.5 COMMENT Culture Results Microbiology Date/Time Source Procedure Growth Status 05/12/17 21:48 Blood Peripheral Aerobic Blood Culture - Preliminary NO GROWTH IN 2 DAYS Resulted 05/12/17 21:48 Blood Peripheral Anaerobic Blood Culture - Preliminary NO GROWTH IN 2 DAYS Resulted 05/12/17 21:40 Blood Peripheral Aerobic Blood Culture - Preliminary NO GROWTH IN 2 DAYS Resulted 05/12/17 21:40 Blood Peripheral Anaerobic Blood Culture - Preliminary NO GROWTH IN 2 DAYS Resulted 05/14/17 22:36 Stool Stool Stool Occult Blood (KEAGAN) - Final HEMOCCULT NEGATIVE Complete 05/12/17 16:23 Urine Clean Catch Legionella Antigen - Final PRESUMPTIVE NEGATIVE FOR LEGIONELLA P... Complete 05/12/17 16:23 Streptococcus pneumoniae Antigen (M - Final Pos S.pneumoniae Antigen Complete 05/12/17 16:23 Urine Clean Catch Urine Culture - Final Escherichia Coli Complete Administered Medications Medications (Trade) Dose Ordered Sig/Velvet Route PRN Reason Start Time Stop Time Status Last Admin Dose Admin Sodium Chloride (NS Flush) 2 ml BID IV FLUSH 05/12/17 21:00 05/14/17 22:49 Senna/Docusate Sodium (Kaykay-Colace) 1 tab BID PO 05/12/17 21:00 05/14/17 21:11 Atenolol (Tenormin) 25 mg DAILY PO 05/13/17 09:00 05/14/17 08:22 Cholecalciferol (Vitamin D3) 5,000 units DAILY PO 05/13/17 09:00 05/14/17 08:22 Folic Acid (Folate) 1 mg DAILY PO 05/13/17 09:00 05/14/17 08:22 Latanoprost (Xalatan 0.005% Opt Soln) 1 drop HS EACH EYE 05/12/17 21:00 05/14/17 21:00 Tiotropium [place] (Spiriva Inh) 18 mcg DAILY INH 05/13/17 09:00 05/14/17 08:20 Pravastatin Sodium (Pravachol) 80 mg HS PO 05/12/17 21:00 05/14/17 21:09 Aztreonam 2000 mg/ Sodium Chloride 100 ml @ 200 mls/hr Q8H IV 05/13/17 04:00 05/15/17 03:42 Vancomycin HCl 1500 mg/Sodium Chloride 515 ml @ 250 mls/hr Q12H IV 05/13/17 09:00 Future Hold 05/14/17 08:20 Metronidazole 100 ml @ 100 mls/hr Q8H IV 05/13/17 02:00 05/15/17 02:32 Furosemide (Lasix) 20 mg BID PO 05/14/17 21:00 05/14/17 21:12 Acetaminophen (Tylenol) 650 mg Q4H PRN PO SEE LABEL COMMENTS 05/14/17 16:30 05/14/17 22:49 Diphenhydramine HCl (Benadryl) 25 mg Q4H PRN PO SEE LABEL COMMENTS 05/14/17 16:30 05/14/17 22:49 Objective Remarks GENERAL: obese, bedridden and sob SKIN: Warm and dry. HEAD: Normocephalic. EYES: No scleral icterus. No injection or drainage. NECK: Supple, trachea midline. No JVD or lymphadenopathy. LYMPHATIC: No adenopathy. CARDIOVASCULAR: Regular rate and rhythm without murmurs. RESPIRATORY: decreased sounds at bases and continued wheezing GASTROINTESTINAL: Abdomen soft, non-tender, nondistended. EXTREMITIES: trace edema MUSCULOSKELETAL: poor muscle tone. NEUROLOGICAL: global weakness PSYCHIATRIC: difficultly focusing. Assessment/Plan Assessment 1: history of stage IV lung cancer. I have discussed the films with Dr. Couch and there is no radiographic evidence of cancer which is unexpected given her diagnosis. Have tried to reach her oncologist and will try again on Monday. 2: BNP almost 3,000 and she has bilateral effusions all suggesting CHF. Have placed consult with cardiology and reviewed case with Dr. Martinez 3: anemia and thrombocytopenia: I am surprised to this degree at this time. Her last chemotherapy was approximately 8 weeks ago and according to the daughter was a maintenance treatment. This does not fully explain the cytopenias we are seeing at the present. 4: She is not any better and at the present time the prevailing problem is her sob which I suspect leads to her global weakness. No need for further transfusions today. Await cardiology consult to determine if her respiratory situation is related to cardiac issues. Hussein Martinez MD May 15, 2017 09:39
--- NOTE | 2017-05-15 09:40 | EKG ---
Date Performed: 05/12/2017 Time Performed: 22:12:27 PTAGE: 77 years EKG: Sinus rhythm WITH FIRST DEGREE AV BLOCK RIGHT BUNDLE BRANCH BLOCK LEFT ANTERIOR FASCICULAR BLOCK MODERATE T-WAVE ABNORMALITY ABNORMAL ECG PREVIOUS TRACING : 05/12/2017 17.22 Compared to prior tracing no significant change DOCTOR: Wilber Steel Interpretating Date/Time 05/15/2017 09:40:06
[2017-05-15] MEDS: DOCUSATE SODIUM 50 MG/SENNA 8.6 MG TAB PO SCH ×2 (09:45→20:26)
[2017-05-15] MEDS: ATENOLOL 25 MG TAB PO SCH (09:46)
[2017-05-15] MEDS: FOLIC ACID 1 MG TAB PO SCH (09:46)
[2017-05-15] MEDS: FUROSEMIDE 20 MG TAB PO SCH ×2 (09:46→20:26)
[2017-05-15] MEDS: SODIUM CHLORIDE 0.9% FLUSH 10 ML FLUSH IV FLUSH SCH ×2 (09:46→20:27)
--- NOTE | 2017-05-15 09:53 | EKG ---
Date Performed: 05/12/2017 Time Performed: 17:22:00 PTAGE: 77 years EKG: Sinus rhythm WITH FIRST DEGREE AV BLOCK RIGHT BUNDLE BRANCH BLOCK LEFT ANTERIOR FASCICULAR BLOCK MODERATE T-WAVE ABNORMALITY, CONSIDER LATERAL ISCHEMIA ABNORMAL ECG Compared to prior tracing no significant change DOCTOR: Wilber Steel Interpretating Date/Time 05/15/2017 09:53:28
[2017-05-15] MEDS: CHOLECALCIFEROL (VIT D3) 5000 UNIT CAP PO SCH (09:55)
[2017-05-15] MEDS ORDERED: FUROSEMIDE 20 MG/2 ML VIAL IV PUSH ONE (10:15)
[2017-05-15] MEDS: TIOTROPIUM BROMIDE 18 MCG INH INH SCH (10:35)
--- NOTE | 2017-05-15 10:39 | HHI.PR ---
Review/Management Diagnosis/Plan: (1) Acute encephalopathy ICD Codes: G93.40 - Encephalopathy, unspecified Status: Acute Plan: metabolic 2/2 hypercapnia/chf exacerbation. r/o complex partial sz vs brain met vs infarct mri spine- no cord lesion, no met dz recs medical to better evaluate her dyspnea pulm following cardio consulted i will repeat a cxr and order an abg d/w onc follow exam (2) Lung cancer ICD Codes: C34.90 - Malignant neoplasm of unspecified part of unspecified bronchus or lung (3) CHF (congestive heart failure) ICD Codes: I50.9 - Heart failure, unspecified Status: Chronic (4) HTN (hypertension) ICD Codes: I10 - Essential (primary) hypertension Status: Chronic Subjective Subjective Comments No acute events reported No headache Active Medications Current Medications Medications (Trade) Dose Ordered Sig/Velvet Route Start Time Stop Time Status Last Admin (NS Flush) 2 ml UNSCH PRN IV FLUSH 05/12/17 18:30 (NS Flush) 2 ml BID IV FLUSH 05/12/17 21:00 05/15/17 09:46 (Zofran Inj) 4 mg Q6H PRN IVP 05/12/17 18:30 (Tylenol) 650 mg Q6H PRN PO 05/12/17 18:30 (Kaykay-Colace) 1 tab BID PO 05/12/17 21:00 05/15/17 09:45 (Milk Of Magnesia Liq) 30 ml Q12H PRN PO 05/12/17 18:30 (Senokot) 17.2 mg Q12H PRN PO 05/12/17 18:30 (Dulcolax Supp) 10 mg DAILY PRN RECTAL 05/12/17 18:30 (Lactulose Liq) 30 ml DAILY PRN PO 05/12/17 18:30 (Tenormin) 25 mg DAILY PO 05/13/17 09:00 05/15/17 09:46 (Vitamin D3) 5,000 units DAILY PO 05/13/17 09:00 05/15/17 09:55 (Folate) 1 mg DAILY PO 05/13/17 09:00 05/15/17 09:46 (Xalatan 0.005% Opth Soln) 1 drop HS EACH EYE 05/12/17 21:00 05/14/17 21:00 (Spiriva Inh) 18 mcg DAILY INH 05/13/17 09:00 05/15/17 10:35 (Pravachol) 80 mg HS PO 05/12/17 21:00 05/14/17 21:09 Aztreonam 2000 mg/ Sodium Chloride 100 ml @ 200 mls/hr Q8H IV 05/13/17 04:00 05/15/17 03:42 Vancomycin HCl 1500 mg/Sodium Chloride 515 ml @ 250 mls/hr Q12H IV 05/13/17 09:00 Future Hold 05/14/17 08:20 Metronidazole 100 ml @ 100 mls/hr Q8H IV 05/13/17 02:00 05/15/17 09:45 Pharmacy Profile Note 0 ml @ 0 mls/hr UNSCH OTHER 05/12/17 18:45 (Duoneb Neb) 1 ampule Q4HR NEB PRN NEB 05/13/17 10:45 (Lasix) 20 mg BID PO 05/14/17 21:00 05/15/17 09:46 (Tylenol) 650 mg Q4H PRN PO 05/14/17 16:30 05/14/17 22:49 (Benadryl) 25 mg Q4H PRN PO 05/14/17 16:30 05/14/17 22:49 Allergies Allergies Coded Allergies codeine (Verified Allergy, Intermediate, 05/12/17) cephalexin (Verified Allergy, Unknown, 05/12/17) Review of Systems All other ROS: ROS reviewed as documented in chart Exam I&O / VS Vital Signs Date Time Temp Pulse Resp B/P (MAP) Pulse Ox O2 Delivery O2 Flow Rate FiO2 05/15/17 08:29 96.0 85 18 119/75 (90) 98 05/15/17 00:00 97.3 89 20 114/47 (69) 98 05/15/17 00:00 97.3 82 20 112/64 100 05/14/17 23:11 98.6 82 20 112/65 (81) 100 05/14/17 21:42 97 Nasal Cannula 3.00 05/14/17 21:09 77 05/14/17 20:56 97.6 85 24 114/68 (83) 100 05/14/17 17:52 96.7 71 18 119/50 (73) 99 05/14/17 16:00 97.4 86 18 163/73 (103) 100 05/14/17 12:41 70 05/14/17 12:00 97.5 76 17 96/61 (73) 100 05/14/17 11:11 72 Exam Comments alert, obese, ox 1 to self, has difficulty speaking 2/2 dyspnea, on O2, neck supple, follows some simple request, eomi, vff, ou dense opacities, 3-2mm, face sym, generalized weakness dawn to gravity, withdraws to tactile with le weakness, planterflexor Objective Micro and Labs Laboratory Tests Test 05/15/17 05:14 White Blood Count 4.4 Red Blood Count 2.69 Hemoglobin 8.9 Hematocrit 26.8 Mean Corpuscular Volume 99.7 Mean Corpuscular Hemoglobin 33.2 Mean Corpuscular Hemoglobin Concent 33.3 Red Cell Distribution Width 19.3 Platelet Count 42 Mean Platelet Volume 9.3 Neutrophils (%) (Auto) 88.2 Lymphocytes (%) (Auto) 5.3 Monocytes (%) (Auto) 3.7 Eosinophils (%) (Auto) 2.6 Basophils (%) (Auto) 0.2 Neutrophils # (Auto) 3.8 Lymphocytes # (Auto) 0.2 Monocytes # (Auto) 0.2 Eosinophils # (Auto) 0.1 Basophils # (Auto) 0.0 CBC Comment AUTO DIFF Differential Comment AUTO DIFF CONFIRMED Platelet Estimate LOW Platelet Morphology Comment ENLARGED Ovalocytes 1+ Acanthocytes OCC Erythrocyte Sedimentation Rate 76 Blood Urea Nitrogen 19 Creatinine 0.55 Random Glucose 86 Calcium Level 7.9 Phosphorus Level 2.4 Magnesium Level 1.8 Sodium Level 146 Potassium Level 3.6 Chloride Level 110 Carbon Dioxide Level 30.2 Anion Gap 6 Estimat Glomerular Filtration Rate 107 C-Reactive Protein 3.32 Random Vancomycin Level 28.5 Date/Time Source Procedure Growth Status 05/12/17 21:48 Blood Peripheral Aerobic Blood Culture - Preliminary NO GROWTH IN 2 DAYS Resulted 05/12/17 21:48 Blood Peripheral Anaerobic Blood Culture - Preliminary NO GROWTH IN 2 DAYS Resulted 05/14/17 22:36 Stool Stool Stool Occult Blood ([facility]AN) - Final HEMOCCULT NEGATIVE Complete 05/12/17 16:23 Urine Clean Catch Legionella Antigen - Final PRESUMPTIVE NEGATIVE FOR LEGIONELLA P... Complete 05/12/17 16:23 Streptococcus pneumoniae Antigen (M - Final Pos S.pneumoniae Antigen Complete Problem Qualifiers (1) Lung cancer: Qualified Codes: C34.90 - Malignant neoplasm of unspecified part of unspecified bronchus or lung (2) CHF (congestive heart failure): Qualified Codes: I50.9 - Heart failure, unspecified (3) HTN (hypertension): Qualified Codes: I10 - Essential (primary) hypertension Jewel Prescott MD May 15, 2017 10:39
[2017-05-15 11:03] LABS: BLOOD GAS BASE EXCESS 3.5 mmol/L (-2-2); BLOOD GAS HCO3 29 mmol/L (22-26); BLOOD GAS O2 HGB SATURATION 96 % (90-100); BLOOD GAS OXYGEN CONTENT 12.6 Vol % (12.0-20.0); BLOOD GAS PCO2 59 mmHg (38-42); BLOOD GAS PO2 140 mmHg (61-120); BLOOD GAS TOTAL HGB 9.1 G/DL (12.0-16.0); TEMP CORR TO 98.6
[2017-05-15 11:04] LABS: CRITICAL VALUE YES; DRAW SITE RT RADIAL; LITER FLOW 3 L/M; NUMBER OF ARTERIAL PUNCTURES 1; OXYGEN DEVICE NASAL CANNULA; STAT NO; ULNAR PULSE PRESENT
--- NOTE | 2017-05-15 12:31 | RADRPT ---
EXAM DATE/TIME: 05/15/2017 11:43 [place] COMPARISON: CHEST SINGLE AP, May 14, 2017, 4:13. INDICATIONS : Congestive heart failure. MEDICAL HISTORY : Congestive heart failure. Hypertension. Carcinoma, lung. SURGICAL HISTORY : Hysterectomy. Gastric band ENCOUNTER: Subsequent ACUITY: 3 days PAIN SCORE: Non-responsive. LOCATION: Bilateral chest FINDINGS: Persistent cardiomegaly with less interstitial edema. Line in good position. Dense consolidation le ft base that has increased in the interval. There is no pneumothorax. The portion of the bony skelet on visualized is unremarkable. CONCLUSION: Increasing consolidation left base. No significant congestive failure. Peter Couch MD FACR on May 15, 2017 at 12:28 Board Certified Radiologist. This report was verified electronically.
--- NOTE | 2017-05-15 14:18 | HHI.PR ---
Subjective Remarks 77 YOWF with h/o ca lung, s/p chemo, COPD CT chest left basal atelactesis, no infilt has pl effusion ABG showes resp acidosis Was lethargic, better now Objective Vital Signs Vital Signs Date Time Temp Pulse Resp B/P (MAP) Pulse Ox O2 Delivery O2 Flow Rate FiO2 05/15/17 13:45 91 Room Air 05/15/17 11:35 97 Nasal Cannula 1.00 05/15/17 11:15 Nasal Cannula 1.00 05/15/17 11:04 97.7 69 18 105/48 (67) 98 05/15/17 10:48 100 Nasal Cannula 2.00 05/15/17 08:29 96.0 85 18 119/75 (90) 98 05/15/17 00:00 97.3 89 20 114/47 (69) 98 05/15/17 00:00 97.3 82 20 112/64 100 05/14/17 23:11 98.6 82 20 112/65 (81) 100 05/14/17 21:42 97 Nasal Cannula 3.00 05/14/17 21:09 77 05/14/17 20:56 97.6 85 24 114/68 (83) 100 05/14/17 17:52 96.7 71 18 119/50 (73) 99 05/14/17 16:00 97.4 86 18 163/73 (103) 100 I/O 05/14/17 05/14/17 05/14/17 05/15/17 05/15/17 05/15/17 07:00 15:00 23:00 07:00 15:00 23:00 Intake Total 720 ml 840 ml 835 ml Balance 720 ml 840 ml 835 ml Intake Oral 120 ml 240 ml IV Total 600 ml 600 ml Packed Cells 400 ml Blood Product IV Normal Saline Flush 435 ml # Voids 2 1 2 # Bowel Movements 0 1 Result Diagram: 05/15/1751305/15/17513 Objective Remarks GENERAL: WBWN wf, mild sob, tired SKIN: Warm and dry. HEAD: Normocephalic. EYES: No scleral icterus. No injection or drainage. NECK: Supple, trachea midline. No JVD or lymphadenopathy. CARDIOVASCULAR: Regular rate and rhythm without murmurs, gallops, or rubs. RESPIRATORY: Breath sounds equal bilaterally. No accessory muscle use. GASTROINTESTINAL: Abdomen soft, non-tender, nondistended. MUSCULOSKELETAL: No cyanosis, or edema. BACK: Nontender without obvious deformity. No CVA tenderness. A/P Assessment and Plan Left basal infilt No Infilterates Pneumococcal Ag positive prob from previous infection UTI ? CHF Anemia PLAN: DW Pt's daughter JODIE Rowe She will need Abx for UTI Gentle diurease Cardiology consulted BIPAP 10/5 prn sob, lethargy Laith Martinez MD May 15, 2017 14:18
--- NOTE | 2017-05-15 14:24 | HHI.FPPN ---
Subjective Remarks Patient seen and examined today. Continues to be alert but limited in orientation. Oriented to person and time. Does not answer most questions appropriately, will begin to answer but trails off half way through. Appears to have increased respiratory effort. Objective Vitals Vital Signs Date Time Temp Pulse Resp B/P (MAP) Pulse Ox O2 Delivery O2 Flow Rate FiO2 05/15/17 11:35 97 Nasal Cannula 1.00 05/15/17 11:15 Nasal Cannula 1.00 05/15/17 11:04 97.7 69 18 105/48 (67) 98 05/15/17 10:48 100 Nasal Cannula 2.00 05/15/17 08:29 96.0 85 18 119/75 (90) 98 05/15/17 00:00 97.3 89 20 114/47 (69) 98 05/15/17 00:00 97.3 82 20 112/64 100 05/14/17 23:11 98.6 82 20 112/65 (81) 100 05/14/17 21:42 97 Nasal Cannula 3.00 05/14/17 21:09 77 05/14/17 20:56 97.6 85 24 114/68 (83) 100 05/14/17 17:52 96.7 71 18 119/50 (73) 99 05/14/17 16:00 97.4 86 18 163/73 (103) 100 I/O 05/14/17 05/14/17 05/14/17 05/15/17 05/15/17 05/15/17 06:59 14:59 22:59 06:59 14:59 22:59 Intake Total 720 ml 840 ml 835 ml Balance 720 ml 840 ml 835 ml Intake Oral 120 ml 240 ml IV Total 600 ml 600 ml Packed Cells 400 ml Blood Product IV Normal Saline Flush 435 ml # Voids 2 1 2 # Bowel Movements 0 1 Result Diagram: 05/15/1751305/15/17513 Objective Remarks GENERAL: This is a well-nourished, well-developed patient, in no apparent distress. Lying in bed. SKIN: No rashes, ecchymoses or lesions. Cool and dry. Back examined- midline mild stage 1 ulceration EYES: Extraocular motions grossly intact. No scleral icterus. No injection or drainage. CARDIOVASCULAR: Regular rate and rhythm without murmurs RESPIRATORY: Distant and course breath sounds, diminished in bases GASTROINTESTINAL: Abdomen soft, non-tender, nondistended. MUSCULOSKELETAL: No calf pain. Mild pitting edema bilaterally NEUROLOGICAL: Awake; oriented to president but not year or location. Grossly normal CN. Grossly normal peripheral motor/sensory function A/P Assessment and Plan 77 year old female with history of COPD, lung cancer, recent hospitalization with pneumonia and sepsis presents with altered mental status. Admitted for workup of AMS and treatment of suspected pneumonia and UTI Discharge Planning Pending oncology, neurology workup and treatment of UTI/pneumonia Problem List: (1) Altered mental status ICD Codes: R41.82 - Altered mental status, unspecified Status: Acute Plan: EKGs: sinus rhythm with 1st degree AV block, R bundle block, left anterior fascicular block. No ST changes concerning for ACS -Neurology consulted -EEG Mild to moderate encephalopathy and artifact -MRI: no acute disease -MRA: possible tiny aneurysm of carotid artery -ESR/CRP- 76/3.32 elevated -Neuro checks Q4. Fall precautions. -Swallow study- mechanical soft diet, thin liquids -Treatment for pneumonia -Aztreonam, Metronidazole, Vancomycin -Continue PT CXR shows cardiomegaly mild failure and consolidative changes left base. ABG with pH of 7.39, PO2 127, PCO2 50, HCO3 29. 100% on 2L O2 U/A shows moderate occult blood, moderate leukocyte esterase, occasional bacteria. CT head shows no acute change. No focal neurologic deficits reported, pt nonverbal, but follows commands EKG shows left and right bundle branch blocks. No pathologic ST changes. Blood cultures: pending; negative x1 day (2) PNA (pneumonia) ICD Codes: J18.9 - Pneumonia, unspecified organism Status: Acute Plan: -Supplemental O2 and pulse ox monitoring. -CXR with worsening left lung consolidation -Continue empiric antibiotics -Vancomycin IV every 12 hours. Pharmacy consulted. -Aztreonam 2g every 8 hours -Flagyl 500mg every 8 hours -Continue bronchodilation -Duonebs Q 4 hours PRN -Will check urinary strep pneumonia/legionella antigens -Pulmonology consulted -Legionella antigen negative; possible pneumococcal urinary ag -CT chest: atelectasis in left lower lobe, small bilateral pleural effusions CXR shows consolidative changes in left base Qualifies as HCAP as patient recently came from [facility] and recent hospitalization Unknown pneumonia vaccine status Blood cultures: pending; negative to date Sputum culture pending (3) UTI (urinary tract infection) ICD Codes: N39.0 - Urinary tract infection, site not specified Plan: -Continue antibiotics as above -Careful with fluids due to fluid/cardiac status -Urine culture: GNR, ID pending Impression:UA on admission with moderate occult blood, etc. sugars, occasional bacteria (4) CHF (congestive heart failure) ICD Codes: I50.9 - Heart failure, unspecified Status: Chronic Plan: Possible history of CHF. Chest x-ray shows cardiomegaly and mild failure. BNP 2870 -Lasix 20mg BID -Consider 2D echo -Monitor fluid status (5) Thrombocytopenia ICD Codes: D69.6 - Thrombocytopenia, unspecified Status: Acute Plan: Trending in 40s -Trend CBCs -Monitor for signs of bleeding -Hold chemoprophylaxis (6) Lung cancer ICD Codes: C34.90 - Malignant neoplasm of unspecified part of unspecified bronchus or lung Plan: Oncology consulted (reportedly known to Dr. Adams)-appreciate recs -CT thorax: no signs of mets in abdomen/pelvis -B12, folate wnl Impression: History of stage IV non-small cell lung cancer. Has been on chemotherapy in the past. Chest port in place. Off chemotherapy for the last 6- 8 weeks. (7) HTN (hypertension) ICD Codes: I10 - Essential (primary) hypertension Status: Chronic Plan: Impression: Normotensive on admission -Continue home atenolol -Monitor vitals (8) FEN Status: Acute Plan: Fluids: No IV fluids at this time Electrolytes: hypokalemia, replacing Nutrition: Mechanical soft diet, thin liquids per speech therapy DVT ppx: Hold chemo ppx due to thrombocytopenia; SCDs Problem Qualifiers (1) Altered mental status: Qualified Codes: R41.82 - Altered mental status, unspecified (2) PNA (pneumonia): Qualified Codes: J18.9 - Pneumonia, unspecified organism (3) UTI (urinary tract infection): Qualified Codes: N30.00 - Acute cystitis without hematuria (4) CHF (congestive heart failure): Qualified Codes: I50.9 - Heart failure, unspecified (5) Lung cancer: Qualified Codes: C34.90 - Malignant neoplasm of unspecified part of unspecified bronchus or lung (6) HTN (hypertension): Qualified Codes: I10 - Essential (primary) hypertension Dl Irwin MD R1 May 15, 2017 14:24
[2017-05-15] MEDS: PRAVASTATIN SOD 80 MG TAB PO SCH (20:26)
[2017-05-15] MEDS: LATANOPROST 0.005% OPHT SOLN 2.5 ML BTL EACH EYE SCH (20:31)
[2017-05-16 00:19] VITALS: BP 97/46; PULSE 58; PULSE 68; RESP 17; TEMP 97.6; O2SAT 98
--- NOTE | 2017-05-16 01:23 | HHI.PR ---
Addendum to Inpatient Note Addendum Reason: Additional Documentation Additional Information Resident team called at 00:53 by nurse. Nurse reports that patient was lethargic all day. Patient was responsive around 21:00 when she took her medicine and had a bath. Patient's heart rate quickly dropped to 20s after checking patient's vitals at 00:19 (T 97.6, P 58, R 58, R 17, BP 97/46). Nurse found the patient unresponsive without a pulse and respirations. Patient was DNR. Dr. Simon and I went to immediately evaluate patient after being paged. Patient was pronounced at 1:18 am 05/16/17. Family was informed. We spoke to family, daughter and son-in-law, in person at 2:20am. Daughter appeared upset and in shock. Daughter had several questions concerning what specialists were consulted in her care. We provided and answered her questions to the best of our knowledge. Family asked for some time alone with patient. We informed the family to paged us and to speak with nurse for further questions and arrangements. Vitals: No pulse or respirations Gen: elderly female, unresponsive Skin: cool to touch, clammy, pale Eyes: dilated pupils, nonreactive to light Cardiovascular: no heart sounds present on auscultation Pulmonary: no lung sounds present on auscultation A/P: 77 yr old F, time of 1:18am 05/16/17 Jenifer Brock MD R1 May 16, 2017 01:23
--- NOTE | 2017-05-16 05:36 | MB ---
cc: SHAHEED HUMMEL DATE OF CONSULTATION 05/15/2017 HISTORY OF PRESENT ILLNESS Ms. Villasenor is a 77-year-old female with a history of Stage IV lung cancer on chemotherapy. She was admitted to the hospital in March with altered mental status and possible seizure. She was discharged to a residential. She was brought to [facility] with altered mental status. She has had increased lethargy and dyspnea. She has history of COPD. She has no previous history of heart disease. She has not had any chest pain. She has generalized weakness. PAST MEDICAL HISTORY 1. Positive for Stage IV [id number] lung cancer treated with maintenance chemotherapy. 2. COPD. 3. Metabolic encephalopathy. 4. Osteoarthritis. PAST SURGICAL HISTORY 1. History of bilateral knee replacement. 2. Lap band surgery for morbid obesity, 3. Port placement. 4. Hysterectomy. MEDICATIONS 1. Furosemide. 2. Atenolol. 3. Vitamin D3. 4. Folic acid. 5. Spiriva. 6. Aztreonam. 7. Metronidazole. 8. Kaykay-Colace. 9. Xalatan eye drops. 10. Pravastatin 80 mg a day. ALLERGIES CEPHALEXIN. CODEINE. SOCIAL HISTORY The patient smoked heavily notes about quit smoking about 20 years ago. She does not drink alcohol. She is a . FAMILY HISTORY Negative for heart disease. REVIEW OF SYSTEMS Otherwise negative. PHYSICAL EXAMINATION VITAL SIGNS: Blood pressure 108/68, pulse 89 and regular. HEENT: Negative. NECK: 2+ carotid upstrokes. No bruits. LUNGS: Clear. Decreased breath sounds. HEART: Regular. No murmur, gallop or rub. ABDOMEN: Soft. No bruits. EXTREMITIES: Without edema. 1-2+ distal pulses. NEUROLOGIC: Exam is grossly nonfocal. Somnolent. EKG Reviewed and showed sinus rhythm, first degree AV block, right bundle-branch block, left anterior fascicular block and T-wave abnormalities. LABS Hemoglobin 8.9, potassium 3.6, creatinine 0.6. BNP 2870 and 2512. TSH 2.2. DIAGNOSES 1. Altered mental status. 2. Stage IV lung cancer treated with maintenance chemotherapy. 3. COPD. 4. Possible pneumonia. 5. UTI. 6. Congestive heart failure. 7. Hypertension. 8. Thrombocytopenia. 9. Anemia. DISPOSITION 1. Ms. Villasenor will be monitored on telemetry. 2. Her BNP is elevated; we will obtain echocardiogram to evaluate her left ventricular systolic and diastolic function. 3. I recommend to continue therapy for hypertension. 4. She is undergoing pulmonary evaluation. 5. She is treated for stage 4 lung cancer. MD HOMER Bernabe/SSB /7:07 PM /5:10 AM MTDApoorva
== END 2017-05-16 01:18 | disposition expired | DRG 193 ==
LOC: NEPE 14:22 → NEDA 17:42 → N04A 18:54 → HCIN 05-14 17:24
PROVIDERS: ADMIT Family Medicine; ATTEND Family Medicine
PROC: 30233N1 Transfusion of Nonautologous Red Blood Cells into Peripheral Vein, Percutaneous Approach (ICD-10-PCS; principal; 2017-05-14)
DX: J18.9 Pneumonia, unspecified organism (principal); G93.41 Metabolic encephalopathy; D69.6 Thrombocytopenia, unspecified; C34.90 Malignant neoplasm of unspecified part of unspecified bronchus or lung; J44.0 Chronic obstructive pulmonary disease with (acute) lower respiratory infection; I45.2 Bifascicular block; I50.9 Heart failure, unspecified; I11.0 Hypertensive heart disease with heart failure; D64.9 Anemia, unspecified; J98.11 Atelectasis; N30.00 Acute cystitis without hematuria; R55 Syncope and collapse; Z92.21 Personal history of antineoplastic chemotherapy; M17.10 Unilateral primary osteoarthritis, unspecified knee; Z96.653 Presence of artificial knee joint, bilateral; H40.9 Unspecified glaucoma; Z87.891 Personal history of nicotine dependence; Z66 Do not resuscitate; Y95 Nosocomial condition; E87.6 Hypokalemia; Z98.84 Bariatric surgery status; I44.0 Atrioventricular block, first degree
CPT/HCPCS: 36430; 36600; 70450; 70544; 70553; 71010; 71260; 72156; 72157; 72158; 74177; 80048; 80053; 80202; 80307; 81001; 82140; 82272; 82378; 82550; 82607; 82728; 82746; 82805; 83605; 83735; 83880; 84100; 84443; 84484; 85007; 85025; 85027; 85384; 85610; 85652; 85730; 86140; 86850; 86900; 86901; 86920; 87040; 87077; 87086; 87186; 87449; 93005; 94640; 94664; 95819; 96360; A9579; J1940; J3370; J3480; J7030; J7040; J7050; P9016; Q9967